=== PATIENT | female | born 1955 | race Caucasian/White ===

== ENCOUNTER 2023-03-20 07:13 | Observation (INO) ==
--- NOTE | 2023-02-02 15:41 | PAT Medication Instructions ---
Medication Instructions Date of Service February 02, 2023 Home Medications alprazolam 0.25 mg tablet 0.25 mg PO DAILY PRN Anxiety biotin 5,000 mcg disintegrating tablet 5,000 mcg PO QAM carvedilol 6.25 mg tablet 6.25 mg PO BID cholecalciferol (vitamin D3) 125 mcg (5,000 unit) tablet (Vitamin D3) 125 mcg PO QAM olmesartan 20 mg-hydrochlorothiazide 12.5 mg tablet 1 tab PO QAM venlafaxine 150 mg capsule,extended release 24 hr 150 mg PO QAM STOP taking 2 weeks before surgery biotin 5,000 mcg disintegrating tablet 5,000 mcg PO QAM DO NOT take the morning of surgery cholecalciferol (vitamin D3) 125 mcg (5,000 unit) tablet (Vitamin D3) 125 mcg PO QAM olmesartan 20 mg-hydrochlorothiazide 12.5 mg tablet 1 tab PO QAM Take morning of surgery With a small sip of water, OTHERWISE NOTHING TO EAT OR DRINK AFTER MIDNIGHT: alprazolam 0.25 mg tablet 0.25 mg PO DAILY PRN Anxiety (if needed) carvedilol 6.25 mg tablet 6.25 mg PO BID venlafaxine 150 mg capsule,extended release 24 hr 150 mg PO QAM Take evening before surgery alprazolam 0.25 mg tablet 0.25 mg PO DAILY PRN Anxiety (if needed) carvedilol 6.25 mg tablet 6.25 mg PO BID Other Notes If you have any questions please call us at [phone] or [phone] or [phone] or [phone]
--- NOTE | 2023-02-06 11:36 | Anesthesiology Consultation ---
Date of Service February 06, 2023 Assessment & Plan (1) Encounter for pre-operative examination: Chart Review Chart Review: Acceptable Risk for Surgery (pending PCP clearance 02/14/23 and response from [facility] neuro re: foot drop ) and Patient seen in Pre Admission Testing - Awaiting PCP clearance 02/14/23 (Aguilar Abbasi PA-C) (please send preop testing to PCP for review) - Please send optimization to neurology ([facility] Dr. Slaughter)- re: foot drop- need r esponse Pt currently scheduled as 23 hours observation. If surgeon decides to change patient to Same Day Joint, patient would be acceptable risk for TSA, pending patient is motivated, has good support and surgeon's office completes [facility] preop requirements. Per PAT appt on 02/06/23, no recent illness/disease exposures, illness related symptoms, or recent illness/disease positive tests. Will leave to surgeon's discretion if preop Covid testing needed Teaching & Discussion Pre-Anesthesia Teaching/Discussion Notes: Instructed NPO after midnight before surgery,except medications with 15 cc of water. Medication instructions provided according to the PAT guidelines. History Surgery Operation Date: 02/22/23 07:00 Proposed Procedures p Left Reverse Total Shoulder Arthroplasty, Biceps Tenodesis - Amor Santos MD Height/Weight Height: 5 ft 2 in Weight: 92.9 kg Allergies Allergy/AdvReac Type Severity Reaction Status Date / Time sulfamethoxazole Allergy Unknown Unknown Verified 02/02/23 10:33 [From Bactrim] trimethoprim [From Bactrim] Allergy Unknown Unknown Verified 02/02/23 10:33 paroxetine [From Paxil] AdvReac Intermediate nightmares Verified 02/02/23 10:33 Medications Home Medications Medication Instructions Recorded Confirmed Last Taken alprazolam 0.25 mg tablet 0.25 mg PO DAILY PRN Anxiety 02/02/23 02/02/23 Unknown biotin 5,000 mcg disintegrating 5,000 mcg PO QAM 02/02/23 02/02/23 Unknown tablet carvedilol 6.25 mg tablet 6.25 mg PO BID 02/02/23 02/02/23 Unknown cholecalciferol (vitamin D3) 125 125 mcg PO QAM 02/02/23 02/02/23 Unknown mcg (5,000 unit) tablet (Vitamin D3) olmesartan 20 1 tab PO QAM 02/02/23 02/02/23 Unknown mg-hydrochlorothiazide 12.5 mg tablet venlafaxine 150 mg 150 mg PO QAM 02/02/23 02/02/23 Unknown capsule,extended release 24 hr Past Medical History Medical History (Updated 02/06/23 @ 14:52 by Meri Cardoso PA-C) Foot drop Right side- since November 2022 - follows with [facility] neuro - 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" Hearing deficit Bilateral aids bilaterally Anxiety Hypertension Exercise / Class Metabolic Activity II 4-5 Yardwork/Stairs/Walk up hill (one flight of stairs - no chest pain or SOB ) Past Family History Family History Other No family history of adverse response to anesthesia Past Surgical History Surgical History History of dilatation and curettage History of bilateral tubal ligation History of lumbar surgery L4-5 History of colonoscopy History of total hysterectomy with bilateral salpingo-oophorectomy (BSO) History of tooth extraction History of ear surgery Past Anesthesia History No Hx of Anesthesia Complications and No Family Hx of Anesthesia Complications History of PONV No Hx of PONV and No Hx of Motion Sickness Social History Smoking Status: Never smoker Do You Dip or Chew Tobacco: No Hx Alcohol Use: Yes (drinks 2 glass of vodka a day) Alcohol type: hard liquor alcohol intake frequency: 0-2 drinks per day Hx Substance Use: No substance use type: does not use Review of Systems Patient denies chest pain, shortness of breath, dyspnea on exertion, reflux, cough, wheezing, palpitations. No hx of seizures, stroke, NC, apnea/snoring. No hx of blood clots or blood transfusions Physical Exam Vital Signs VITALS BP 132/83 P 56 TEMP 97.8 SP02 96% RESP 16 Constitutional no acute distress ENMT Mouth: no TMJ clicking Thyromental Distance: < 3.5 Finger Breadths (3.0) Mallampati Class: II Cap to side teeth Neck neck extension not limited Respiratory normal respiratory effort; no respiratory distress Auscultation: lungs clear to auscultation bilaterally; no wheezes Cardiovascular Rate/Rhythm: regular rate and regular rhythm Heart Sounds: no murmur Vessels: no carotid bruit Musculoskeletal Spine: no pain with cervical ROM Extremities: extremities normal to inspection Psychiatric Orientation: alert Lab Results Anesthesia Preop Results Results Anesthesia Widget: PT 10.7 Seconds (9.0-12.0) 02/06/23 PTT 27.6 Seconds (21.0-31.0) 02/06/23 INR 1.0 (0.9-1.1) 02/06/23 Urine Color Yellow 02/06/23 Urine Appearance Clear (Clear) 02/06/23 Urine pH 6.5 (4.5-7.5) 02/06/23 Urine Specific [place] 1.016 (1.000-1.030) 02/06/23 Urine Protein Negative (Negative) 02/06/23 Urine Glucose (UA) Negative (Negative) 02/06/23 Urine Ketones Negative (Negative) 02/06/23 Urine Blood Negative (Negative) 02/06/23 Urine Nitrite Negative (Negative) 02/06/23 Urine Bilirubin Negative (Negative) 02/06/23 Urine Urobilinogen Negative (Negative) 02/06/23 Urine Leukocyte Esterase Negative (Negative) 02/06/23 Blood Type A Positive 02/06/23 Antibody Screen NEGATIVE 02/06/23 Testing Laboratory Results 01/12/23= WBC: 6.40 H/H: 15.0/44.8 PLATELETS: 268 SODIUM: 140 POTASSIUM: 4.1 CHLORIDE: 101 CO2: 25 BUN: 13 CREATININE: 0.7 GLUCOSE: 101 Electrocardiogram Date: 02/06/23 Findings: + SB @ (54bpm ) Low voltage QRS Poor R wave progression, consider NC vs lead placement vs LVH (EKG from [facility] from November 05, 2020 with similar findings- similar in appearance by personal visual inspection; "cannot rule out anterior infarct" on stress test EKG 2019 (scanned into chart)- with subsequent negative stress test ) Chest X-Ray Date: 02/06/23 Findings: + NAD FINDINGS: Cardiomediastinal and hilar silhouettes are within normal limits. Atherosclerosis of the aorta. No pneumothorax, pleural effusion or overt pulmonary edema. There is an ovoid radiodense 1.6 cm structure which projects over the lateral left upper chest which is favored to be benign. Degenerative changes of the shoulders and spine. Stress Test Date: 08/29/19 Type: exercise NSR with low voltage QRS No significant ST changes and rare PVC noted Negative exercise stress test for ischemia at 7.0 METS and 101% of MPHR. Hypertensive BP response No significant ventricular ectopy. Low risk study
--- NOTE | 2023-03-11 08:55 | History & Physical Report ---
Date of Service March 11, 2023 Assessment & Plan (1) Primary osteoarthritis, left shoulder: Plan: Treatment options discussed with the patient. They wish to proceed with surgical management. Risks, benefits and alternatives to surgery including but not limited to infection, DVT, pain, stiffness, need for revision surgery, damage to blood vessels, damage to nerves, PE, , were discussed with the patient and they wish to proceed. Plan for left reverse total shoulder arthroplasty scheduled for [facility] on March [address] Santos. All questions answered. Patient will follow-up postoperatively. History of Present Illness Chief Complaint: Left shoulder pain Primary Care Provider: Aguilar Abbasi 67-year-old female with past medical history significant for anxiety, hypertension who presents with ongoing left shoulder pain. Pain is interfering with her daily activities. She has failed conservative measures including steroid injections. She would like to proceed with surgical management. Patient denies headaches, sweats, fevers, chills, double vision, blurred vision, cough, sore throat, dysphagia, chest pain, sob, wheezing, n/v/d/c, numbness, tingling, fatigue, urinary symptoms, mood disorders. ROS positive for left shoulder pain and stiffness. Allergies Allergy/AdvReac Type Severity Reaction Status Date / Time sulfamethoxazole Allergy Unknown Unknown Verified 02/02/23 10:33 [From Bactrim] trimethoprim [From Bactrim] Allergy Unknown Unknown Verified 02/02/23 10:33 paroxetine [From Paxil] AdvReac Intermediate nightmares Verified 02/02/23 10:33 Home Medications Medication Instructions Recorded Confirmed Type alprazolam 0.25 mg tablet 0.25 mg PO DAILY PRN Anxiety 02/02/23 02/02/23 History biotin 5,000 mcg disintegrating 5,000 mcg PO QAM 02/02/23 02/02/23 History tablet carvedilol 6.25 mg tablet 6.25 mg PO BID 02/02/23 02/02/23 History cholecalciferol (vitamin D3) 125 125 mcg PO QAM 02/02/23 02/02/23 History mcg (5,000 unit) tablet (Vitamin D3) olmesartan 20 1 tab PO QAM 02/02/23 02/02/23 History mg-hydrochlorothiazide 12.5 mg tablet venlafaxine 150 mg 150 mg PO QAM 02/02/23 02/02/23 History capsule,extended release 24 hr Past Med/Surg History Medical History (Updated 03/11/23 @ 08:54 by Nir Tavarez PA-C) Foot drop Right side- since November 2022 - follows with [facility] neuro - 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" Hearing deficit Bilateral aids bilaterally Anxiety Hypertension Surgical History History of dilatation and curettage History of bilateral tubal ligation History of lumbar surgery L4-5 History of colonoscopy History of total hysterectomy with bilateral salpingo-oophorectomy (BSO) History of tooth extraction History of ear surgery Family History Other No family history of adverse response to anesthesia Social History Smoking Status: Never smoker Second Hand Exposure: No; Do You Dip or Chew Tobacco: No; Tobacco Cessation Education Requested by Patient: No Hx Alcohol Use: Yes (drinks 2 glass of vodka a day) Alcohol type: hard liquor Hx Substance Use: No Preferred Language: Togolese Communication Ability: Effective Resource Technician Required: No Beliefs That Will Affect Care: None Current Living Situation: Spouse Other Information That Helps Us Care for You: No Feels Safe at Home: Yes Safety Concerns: Feels Safe At This Time Assistive Devices: Glasses and Hearing Aid - Bilateral Review of Systems All systems reviewed & are unremarkable except as noted in HPI & below Physical Exam Constitutional: well developed and well nourished; no acute distress Eyes: PERRL, conjunctivae normal, anicteric sclerae ENMT: external ear and nose normal, oropharynx normal Neck: trachea midline, no thyromegaly Respiratory: normal respiratory effort, lungs clear to auscultation Cardiovascular: RRR, no murmur, no edema Musculoskeletal: Left shoulder: Crepitus with range of motion. Tenderness anterior glenoid. Positive impingement signs. Painful range of motion. Forward flexion and abduction to 170 degrees, 80 degrees of external rotation. Normal strength. Skin: no rashes, warm and dry Neurologic: patellar DTR's 2+ bilat, sensation intact Psychiatric: A+Ox3, euthymic affect Results & Data Diagnostic Findings Left shoulder radiographs demonstrate significant osteoarthritis left glenohumeral joint. [id number] glenohumeral joint with large inferior spur. There is a large osteochondral loose body anterior aspect of the shoulder. MRI demonstrates advanced osteoarthritis glenohumeral joint with complete loss of joint space. Large joint effusion with osteochondral loose body in the subcoracoid space. There is mild to moderate rotator cuff tendinopathy with interstitial tearing, possible articular sided tearing. There is a large subchondral rotator cuff cyst.
[~2023-03-20 07:13] MED LIST: ACETAMINOPHEN 500 MG TAB PO SCH; BUPIVACAINE 0.5 % 5 MG/1 ML PF 10ML VIAL ONE; CeleBREX 200 MG CAP PO SCH; DEXAMETHASONE SOD INJ 4 MG/ML VIAL ONE; FAMOTIDINE 20 MG TAB PO SCH; GABAPENTIN 300 MG CAP PO SCH; LIDOCAINE 2% 2 ML VIAL/AMP(20MG/ML) INFIL ONE; LR 15ML/HR IV SCH; LR 60ML/HR IV SCH; METOCLOPRAMIDE HCL 10 MG TABLET PO SCH; MIDAZOLAM HCL 1 MG/ML 2ML VIAL ONE; ONDANSETRON INJ 2 MG/ML 2 ML VIAL ONE; PROPOFOL IV EMULSION 10 MG/ML 20 ML VIAL IV ONE; ROCURONIUM BROMIDE 10 MG/ML 5 ML VIAL IV ONE; SUGAMMADEX SODIUM 200 MG/2 ML VIAL IV ONE; TRANEXAMIC ACID 1,000 MG **IV Intra-op IV SCH; TRANEXAMIC ACID 1,000 MG **IV Pre-op IV SCH; ceFAZolin 2000MG 2,000 MG/15 ML SYR IV SCH; dexAMETHasone 4 MG TAB PO SCH; fentaNYL citrate PF 100 MCG/2 ML VIAL ONE
--- OUTSIDE RECORDS SUMMARY | 2023-03-20 07:18 | External Medical Summary | Summary of Care ---
Author Name Unknown Organization [facility] Address [address] [facility] [address] Phone [phone] Care Team Providers Care Search Engine Optimization Consultant Name Role Phone Elroy Aguilar Silva PA-C Primary Care Provider [phone] Encounter Details Date Type Department Care Team (Late st Contact Info) Description 02/06/2023 Result Scan Unspecified Department <No scans attached> Allergies Active Allergy Reactions Criticality Noted Date Comments Sulfamethoxazole-Trimethoprim 2022 Paroxetine Hcl 04/27/2015 Bad dreams documented as of this encounter (statuses as of 03/17/2023) Medications Medication Sig Dispensed Refills Start Date End Date Status venlafaxine XR (EFFEXOR XR) 150 MG CP24 daily. 1 02/26/2015 Active ALPRAZolam (XANAX) 0.5 MG Tablet Take 0.5 Tablets by mouth at bedtime as needed for Sleep. 0 Active Carvedilol 6.25 MG Oral Tablet (Coreg) Take 1 Tablet by mouth 2 times a day with morning and evening meals. 0 Active Vitamin D3 1.25 MG (66320 UT) Oral Tablet Take by mouth. 0 Active Olmesartan Medoxomil-HCTZ 20-12.5 MG Oral Tablet Take 1 Tablet by mouth in the morning. 0 Active Vitamin B-12 5000 MCG Oral Tablet Disintegrating Take by mouth. 0 Active documented as of this encounter (statuses as of 03/17/2023) Active Problems Problem Noted Date Diagnosed Date Foot drop, right 01/12/2023 Mononeuropathy 01/12/2023 Obesity (BMI 30-39.9) 01/12/2023 documented as of this encounter (statuses as of 03/17/2023) Immunizations Name Administration Dates Next Due COVID-19 mRNA, LNP-s, No Pre serve, 2-Dose Series (Moderna) 06/13/2020,05/16/2020 COVID-19, mRNA, LNP-s, PF, B ooster, 100mcg/0.5mg (Moderna) 04/10/2021 H1N1 2009 Influenza, IM 03/18/2009 Pneumococcal Conjugate Vacc, 13 Valent (Prevnar) 01/08/2021 Pneumococcal Conjugate Vaccine, 20-valent (Prevn ar20) 01/24/2022 Season Influenza, Quad, PF, Adjuvanted, 65+ Yrs, IM (FLUAD) 01/24/2022,12/06/2019 Seasonal Influenza, Quadrivalent Hd (Fluzone Hd) 01/05/2021 Seasonal Influenza, Quadrivalent Hd, 65+ Yrs 07/2019 TD - Tetanus/Diptheria (ADULT) 11/17/2011 Zoster Vaccine Recombinant (Shingrix) 04/07/2020 ,12/06/2019 documented as of this encounter Social History Tobacco Use Types Packs/Day Years Used Date Smoking Tobacco: Never Smokeless Tobacco: Never Alcohol Use Standard Drinks/Week Comments Yes 0 (1 standard drink = 0.6 oz pur e alcohol) occasionally Sex and Gender Information Value Date Recorded Sex Assigned at Not on file Gender Identity Not on file Sexual Orientation Not on file Job Start Date Occupation Industry Not on file Not on file Not on file documented as of this encounter Plan of Treatment Upcoming Encounters Date Type Department Care Team (Late st Contact Info) Description 03/23/2023 12:45 PM EST NeuroDiagnostic Study Neurophysiology, [address] [place] [address] Chu Reed DO [address] [place] [address] 03/29/2023 9:00 AM EST Appointment Radiology, [facility] [address] [facility] [place] [phone] 04/27/2023 10:40 AM EST [facility] Keli Gallo [address] [facility] [place] [phone] Antonella Slaughter MD [address] [place] [address] Scheduled Procedures Name Priority Associated Diagnoses Date/Ti me COLONOSCOPY FLEXIBLE PROXIMA L DIAGNOSTIC Recall Screening for colon cancer Health Maintenance Due Date Last Done Comments Hepatitis C Screening 07/23/1971 Cologuard 1998 Fecal Occult Blood Test 1998 Sigmoidoscopy 1998 DTaP,Tdap,and Td Vaccines (1 - Tdap) 11/18/2011 11/17/2011 Depression Screening 11/29/2017 11/29/2016 COVID-19 Vaccine ( season) 2022 04/10/2021, 06/13/2020, 05/16/2020 Mammogram 03/09/2024 03/09/2023, 07/2022, 02/15/2022, Additional history exists DXA Scan 12/14/2025 12/14/2018 Diabetes Screening 01/12/2026 01/12/2023, 1 , 08/05/2022, Additional history exists Lipid Panel 08/06/2027 08/05/2022, 01/01, 07/09/2021, Additional history exists Colonoscopy 08/12/2030 08/12/2020, 08/12/2020 Colorectal Cancer Screening 08/12/2030 Zoster Vaccines Completed 04/07/2020, 12/06/2019 Pneumococcal Vaccine: 65+ Years Completed 01/24/2022, 01/08/2021 Influenza Vaccine (FLU shot) Completed 10/2022, 01/24/2022, 01/05/2021, Additional history exists GARDASIL-HPV IMMUNIZATION SERIES Aged Out No longer eligible based on patient's age to complete this topic Hepatitis B Aged Out No longer eligi ble based on patient's age to complete this topic MENINGOCOCCAL (MENACTRA/MENVEO) Aged Out No longer eligible based on patient's age to complete this topic documented as of this encounter Medical Devices Not on filedocumented as of this encounter Procedures Procedure Name Priority Date/Time Associated Diagnosis Comments EKG SCANNED RESULT 02/06/2023 documented in this encounter Results * EKG SCANNED RESULT (02/06/2023) 02/06/2023 No Physician Data Unknown EKG documented in this encounter Care Teams Search Engine Optimization Consultant Relationship Specialty Start Date End Date Aguilar Abbasi [facility] [phone] [facility] [id number] PCP - General Physician Mold Blower 01/08/21 documented as of this encounter
--- OUTSIDE RECORDS SUMMARY | 2023-03-20 07:18 | External Medical Summary | Summary of Care ---
Author Name Unknown Organization [facility] Address [address] [place] [address] Phone [phone] Care Team Providers Care Derrick Barge Operator Name Role Phone Aguilar Abbasi PA-C Primary Care Provider [phone] Reason for Visit * Reason Comments NEW PATIENT Pre-op Clearance * Evaluate & Treat - Unlimited Visits (Within 3 days (urgent)) - Authorized Specialty Diagnoses / Procedures Referred By Inga t Referred To Contact Cardiovascular Medicine / Cardiology Diagnoses Encounter for preprocedural cardiovascular examination Abnormal electrocardiogram (ECG) (EKG) Aguilar Abbasi PA-C [address] [place] [address] Referral ID Status Reason Start Date Expiration Date Visits Requested Visits Authorized [id number] Authorized Specialty Services Required [phone] Encounter Details Date Type Department Care Team (Latest Contact Info) Description 03/15/2023 11:00 AM EST Office Visit Cardiology [place] [facility] [address] [facility] [place] [address] Sofia Penaloza CRNP [address] [place] [phone] Nonspecific abnormal electrocardiogram (ECG) (EKG)*; Preoperative cardiovascular examination; HTN, goal below 130/80; Hyperlipemia, mixed Allergies Active Allergy Reactions Criticality Noted Date Comments Sulfamethoxazole-Trimethoprim 2022 Paroxetine Hcl 04/27/2015 Bad dreams documented as of this encounter (statuses as of 03/15/2023) Medications Medication Sig Dispensed Refills Start Date [...] meals. 0 Active Vitamin D3 1.25 MG (70735 UT) Oral Tablet Take by mouth. 0 Active Olmesartan Medoxomil-HCTZ 20-12.5 MG Oral Tablet Take 1 Tablet by mouth in the morning. 0 Active Vitamin B-12 5000 MCG Oral Tablet Disintegrating Take by mouth. 0 Active Lisinopril-Hydrochlo rothiazide 20-12.5 MG per tablet Take 2 Tabs by mouth daily. 1 04/01/2015 03/15/2023 Discontinue d(Patient preference/ discontinua tion) Estradiol 0.1 MG/24HR Transdermal Patch Weekly ([place]) Place 1 Patch topically on the skin once a week. 0 03/15/2023 Discontinue d(Patient preference/ discontinua tion) documented as of this encounter (statuses as of 03/15/2023) Active Problems Problem Noted Date Diagnosed Date Foot drop, right 01/12/2023 Mononeuropathy 01/12/2023 Obesity (BMI 30-39.9) 01/12/2023 documented as of this encounter (statuses as of 03/15/2023) Immunizations Name Administration Dates Next Due COVID-19 mRNA, LNP-s, No Pre serve, 2-Dose Series (Moderna) 06/13/2020,05/16/2020 COVID-19, mRNA, LNP-s, PF, B ooster, 100mcg/0.5mg (Moderna) 04/10/2021 H1N1 2009 Influenza, IM 03/18/2009 Pneumococcal Conjugate Vacc, 13 Valent (Prevnar) 01/08/2021 Pneumococcal Conjugate Vacci ne, 20-valent ([id number]) 01/24/2022 Season Influenza, Quad, PF, Adjuvanted, 65+ Yrs, IM (FLUAD) 03/09/2023,01/24/2022,12/06/2019 Seasonal Influenza, Quadriva lent Hd (Fluzone Hd) 01/05/2021 Seasonal Influenza, Quadriva lent Hd, 65+ Yrs 12/06/2019 TD - Tetanus/Diptheria (ADULT) 11/17/2011 Zoster Vaccine [...] on file documented as of this encounter Last Filed Vital Signs Vital Sign Reading Time Taken Comments Blood Pressure 126/70 03/15/2023 10:54 AM EST Pulse 66 03/15/2023 10:54 AM EST Temperature - - Respiratory Rate - - Oxygen Saturation - - Inhaled Oxygen Concentration - - Weight 92.2 kg (203 lb 3.2 oz) 03/15/2023 10:54 AM EST Height 157.5 cm (5' 2") 03/15/2023 10:54 AM EST Body Mass Index 37.17 03/15/2023 10:54 AM EST documented in this encounter Progress Notes * Sofia Penaloza CRNP - 03/15/2023 10:58 AM EST Subjective Kallie Anthony is a 67 year old female. Chief Complaint Patient presents with NEW PATIENT Pre-op Clearance Referring Provider: Roseanne Abbasi, PAc CC: Abnormal ECG HPI: 67-year-old female presents today referred by her primary care provider for abnormal ECG for preop cardiac clearance. She is planning to have a reverse total shoulder replacement by Dr. Santos next week. She has a known past medical history of hypertension, anxiety and right foot drop. Denies chest pain, SOB, palpitations, dizziness, syncope, edema, orthopnea and PND. No change in activity tolerance. She is able to climb a flight of stairs and do normal daily activities without shortness of breath or any other symptoms to report. Cardiac Family Hx Father of [place] at 46 ( he was a heavy smoker and ETOH use) PMH: Patient Active Problem List Diagnosis Code Foot drop, right M21.371 Mononeuropathy G58.9 Obesity (BMI 30-39.9) E66.9 Current Outpatient Medications Medication Sig Dispense Refill venlafaxine XR (EFFEXOR XR) 150 MG CP24 daily. 1 Carvedilol 6.25 MG Oral Tablet (Coreg) Take 1 Tablet by mouth 2 times a day with morning and evening meals. Vitamin D3 1.25 MG (77472 UT) Oral Tablet Take by mouth. Olmesartan Medoxomil-HCTZ 20-12.5 MG Oral Tablet Take 1 Tablet by mouth in the morning. ALPRAZolam (XANAX) 0.5 MG Tablet Take 0.5 Tablets by mouth at bedtime as needed for Sleep. Vitamin B-12 5000 MCG Oral Tablet Disintegrating Take by mouth. No current facility-administered medications for this visit. Past Medical History: Diagnosis Date Anxiety Hypertension Past Surgical History: Procedure Laterality Date COLONOSCOPY, DIAGNOSTIC (RECTUM) N/A 08/12/2020 scattered recto-sigmoid diverticulosis/internal hemorrhoids/recall 10 years/COLONOSCOPY FLEXIBLE PROXIMAL DIAGNOSTIC performed by Aurora Jorge [facility] at [facility] DILATION AND CURETTAGE (D&C) 04/03/2009 INFORMATION 04/03/1990 back surgery LIGATE/CUT OVIDUCT(S) 04/03/1991 AL SPINE/LUMBAR DISK SURGERY 1990 TOTAL ABD HYSTERECTOMY W/WO REMOVAL OF TUBE(S) 04/03/2010 BSO Review of patient's allergies indicates: Allergen Reactions Bactrim [Sulfamethoxazole-Trimethoprim] Paxil [Paroxetine Hcl] Bad dreams Family History Problem Relation Age of Onset Hypertension Mother Diabetes Mother Other (multiple back surgeries) Mother Other ([place]-) Father Diabetes Sister Hypertension Brother Other (high cholesterol) Brother Other ("black lung") Grandfather (Maternal) Breast Cancer Cousin (Maternal) Family Status Relation Status Mo Fa Sis (Not Specified) Bro (Not Specified) Bro (Not Specified) MGFA (Not Specified) MCOUS (Not Specified) Social History Socioeconomic History Marital status: Spouse name: Not on file Number of children: Not on file Years of education: Not on file Highest education level: Not on file Occupational History Not on file Tobacco Use Smoking status: Never Smokeless tobacco: Never Substance and Sexual Activity Alcohol use: Yes Comment: occasionally Drug use: No Sexual activity: Yes Partners: Male Other Topics Concern Not on file Social History Narrative Not on file Social Determinants of Health Financial Resource Strain: Not on file Food Insecurity: Not on file Transportation Needs: Not on file Physical Activity: Not on file Stress: Not on file Social Connections: Not on file Intimate Partner Violence: Not on file Housing Stability: Not on file Review of Systems Constitutional: Negative for activity change, fatigue and unexpected weight change. Eyes: Negative for visual disturbance. Respiratory: Negative for shortness of breath and wheezing. Cardiovascular: Negative for chest pain, palpitations and leg swelling. Gastrointestinal: Negative for blood in stool, constipation, diarrhea, nausea and vomiting. Genitourinary: Negative for hematuria. Musculoskeletal: Negative for arthralgias and gait problem. Skin: Negative for wound. Neurological: Negative for dizziness and syncope. Objective BP 126/70 | Pulse 66 | Ht 1.575 m (5' 2") | Wt 92.2 kg (203 lb 3.2 oz) | BMI 37.17 kg/m | BSA 2.01 m Physical Exam Vitals and nursing note reviewed. Constitutional: General: She is awake. She is not in acute distress. Appearance: Normal appearance. She is well-developed. She is not ill-appearing. HENT: Head: Normocephalic and atraumatic. Eyes: General: No scleral icterus. Extraocular Movements: Extraocular movements intact. Conjunctiva/sclera: Conjunctivae normal. Pupils: Pupils are equal, round, and reactive to light. Neck: Thyroid: No thyromegaly. Vascular: No carotid bruit or JVD. Cardiovascular: Rate and Rhythm: Normal rate and regular rhythm. Pulses: Normal pulses. Carotid pulses are 2+ on the right side and 2+ on the left side. Radial pulses are 2+ on the right side and 2+ on the left side. Posterior tibial pulses are 2+ on the right side and 2+ on the left side. Heart sounds: Normal heart sounds, S1 normal and S2 normal. No murmur heard. Pulmonary: Effort: Pulmonary effort is normal. No respiratory distress. Breath sounds: Normal breath sounds. No wheezing, rhonchi or rales. Abdominal: General: Bowel sounds are normal. There is no distension. Palpations: Abdomen is soft. There is no mass. Tenderness: There is no abdominal tenderness. Musculoskeletal: General: No swelling. Cervical back: Neck supple. Right lower leg: No edema. Left lower leg: No edema. Skin: General: Skin is warm and dry. Capillary Refill: Capillary refill takes less than 2 seconds. Findings: No rash or wound. Neurological: General: No focal deficit present. Mental Status: She is alert and oriented to person, place, and time. Psychiatric: Attention and Perception: Attention and perception normal. Behavior: Behavior is cooperative. Judgment: Judgment normal. Results Labs & Imaging Reviewed Below: ECG 03/09/23 at [facility] NSR Poor R wave Progression 65 bpm QTc 438 02/06/23 at [facility] SB Poor R-wave progression 54 bpm QTc 771 ms 12/08/20 NSR Low voltage QRS 73 bpm QTc 451 ms 11/05/20 NSR Poor R wave progression 79 bpm QTc 438 ms Treadmill Stress Test 08/29/19 Normal sinus rhythm with low voltage QRS. No significant ST changes and rare PVC noted. Negative exercise stress test for ischemia at 7.0 Mets and 101% of maximum predicted heart rate. hypertensive blood pressure response no significant ventricular ectopy low risk study Labs Latest Reference Range & Units 01/17/22 09:53 08/05/22 10:14 01/12/23 15:54 CO2-OUTSIDE LAB 24 - 31 MEQ/L 28 30 TRIGLYCERIDES-OUTSIDE LAB 0 - 150 MG/DL 84 64 CHOLESTEROL-Outside Lab 0 - 200 MG/DL 224 (H) 242 (H) LDL (DIRECT MEASURE)-OUTSIDE LAB 0 - 130 MG/DL 125 147 (H) Sodium 135 - 146 mmol/L 140 SODIUM-OUTSIDE LAB 135 - 145 MEQ/L 135 133 (L) Potassium 3.5 - 5.1 mmol/L 4.1 POTASSIUM-OUTSIDE LAB 3.5 - 5.0 MEQ/L 4.1 4.6 Chloride 98 - 107 mmol/L 101 CHLORIDE-OUTSIDE LAB 95 - 107 MEQ/L 98 96 CO2 22 - 32 mmol/L 25 BUN 6 - 20 mg/dL 13 BUN-OUTSIDE LAB 6 - 25 MG/DL 11 15 Creatinine 0.5 - 1.0 mg/dL 0.7 CREATININE-OUTSIDE LAB 0.5 - 1.2 MG/DL 0.6 0.6 Estimated Glomerular Filtration Rate >=60 mL/min 89 EGFR-OUTSIDE LAB >60 106 105 Anion Gap 7 - 15 mmol/L 14 Glucose 70 - 120 mg/dL 101 GLUCOSE-OUTSIDE LAB 70 - 110 MG/DL 114 (H) 87 Calcium 8.4 - 10.2 mg/dL 10.0 CALCIUM-OUTSIDE LAB 8.5 - 10.6 MG/DL 10.2 10.0 Protein 6.0 - 8.3 g/dL 6.9 Estimated Average Glucose <126 mg/dL 111 25-HYDROXY VITAMIN D - OUTSIDE LAB 30 - 100 ng/mL 76 66 25-HYDROXY VITAMIN D Rpt Rpt Hemoglobin A1C 4.0 - 5.6 % 5.5 TSH 0.27 - 4.20 uIU/mL 3.48 CBC Rpt CBC WITH WBC DIFFERENTIAL Rpt ! Rpt ! Rpt WBC 4.00 - 10.80 K/uL 6.40 WBC-OUTSIDE LAB 3.1 - 9.2 10^3/M3 4.0 7.0 RBC-OUTSIDE LAB 3.70 - 5.50 10^6/M3 4.09 4.25 HGB 12.0 - 15.3 g/dL 15.0 HCT 36.0 - 45.2 % 44.8 MCV 81.5 - 97.5 fL 103.7 PLT 140 - 400 K/uL 268 PLT-OUTSIDE LAB 140 - 350 10^3/M3 233 286 Absolute Neutrophils 1.80 - 7.70 K/uL 3.20 Absolute Lymphocytes 1.00 - 4.80 K/ul 2.32 Absolute Monocytes 0.00 - 1.10 K/uL 0.66 Absolute Eosinophils 0.00 - 0.70 K/uL 0.18 Absolute Basophils 0.00 - 0.20 K/uL 0.02 BASOPHILS ABSOLUTE-OUTSIDE LAB 0.0 - 0.2 10^3/m3 0.0 0.0 AIDE Screen Negative Positive ! ARMOND Antibodies Screen Value <0.7 Ratio 1.5 ARMOND Antibodies Screen Interpretation Negative Positive ! ANTINUCLEAR ANTIBODY (AIDE) EIA SCREEN WITH REFLEX AB QUANT Rpt ! ANTINUCLEAR ANTIBODY (AIDE) SCREEN, VINCENT Rpt ! dsDNA Antibody Value <20 IU/mL 0.9 [employer] Antibody Value <5 U/mL 0.9 [employer] Antibody Interpretation Negative Negative Sm Antibody Value <7 U/mL <0.7 Sm Antibody Interpretation Negative Negative Scl 70 Antibody Value <7 U/mL <0.6 Scl 70 Antibody Interpretation Negative Negative SSA/Ro Antibody Value <7 U/mL <0.4 SSA/Ro Antibody Interpretation Negative Negative SSB/La Antibody Value <7 U/mL <0.4 SSB/La Antibody Interpretation Negative Negative Centromere Antibody Value <7 U/mL 15.0 Rosemarie-1 Antibody Value <7 U/mL <0.3 Rosemarie-1 Antibody Interpretation Negative Negative ESR <30 mm/hour 18 Lyme Disease Antibody Screen Negative Negative Albumin 3.8 - 5.0 g/dL 4.5 Albumin - Outside Lab 3.0 - 5.2 G/DL 4.6 4.3 AST 10 - 35 U/L 21 AST-OUTSIDE LAB 3 - 42 IU/L 25 20 ALT 10 - 35 U/L 26 ALT-OUTSIDE LAB 10 - 40 IU/L 25 25 Alkaline Phosphatase 35 - 130 U/L 78 ALKALINE PHOSPHATASE-OUTSIDE LAB 43 - 122 IU/L 53 47 TOTAL BILIRUBIN - OUTSIDE LAB 0.1 - 1.3 MG/DL 0.8 0.6 Bilirubin, Total <=1.2 mg/dL 0.5 Revised cardiac index for preoperative risk: Elevated risk surgery: no History of ischemic heart disease: no History of CHF: no History of cerebrovascular disease: no Preoperative treatment with insulin: No Preoperative creatinine greater than 2 mg/dL: No Total: 0 Class I Risk 3.9% risk of cardiac event Impression Pre Op Cardiac Clearance Abnormal ECG with Poor R wave Progression HTN HLD Plan: -HR and BP well controlled -she does have 1 family member who had a significant cardiac event however her father was a heavy smoker and drinker which likely contributed to his cardiac disease -ECGs reviewed over the past several years with poor R-wave progression and low voltage QRS noted -she is asymptomatic from a cardiac standpoint and able to tolerate normal daily activities with nosymptoms -I suspect the poor R-wave progression/low voltage QRS are likely due to her structure and not clinically significant -she is optimize/cleared d from a cardiac standpoint in requires no additional cardiac testing prior to undergoing shoulder surgery as planned -no need for her to follow with cardiology on a regular basis; recommend she be seen in on as-needed basis DISPOSITION: Follow up PRN or if symptoms worsen/fail to improve. All questions were answered to the patients satisfaction. Patient advised to report to ED with any and all emergencies. The patient agrees to the above plan and will call with additional questions or concerns. I spent a total of 60 minutes on the date of service in preparation, delivery, and documentation ofthe care provided to Kallie Anthony excluding any time spent in the performance of separately billed services. RIOS Chamorro Cardiology [place] [address] [address] [place] [id number] This chart was completed in part utilizing [employer] Speech Voice Recognition Software. Grammatical errors, random word insertions, pronoun errors, and incomplete sentences are an occasional consequence of this system due to software limitations, ambient noise, and hardware issues. Any formal questions or concerns about the content, text, or information contained within the body of this dictation should be directly addressed to the provider for clarification. documented in this encounter Nursing Notes * Karla Humphrey LPN - 03/15/2023 10:53 AM EST Patient was identified by name and date of . Name: Kallie Anthony Date of : (1955). Examination Room: 11 Reason for Visit: Chief Complaint Patient presents with NEW PATIENT Pre-op Clearance Interim Hospitalization(s): NO Interim Emergency room visit(s): NO Chest Pain: No SOB: No Problems/Concerns: No Pt sched for L shoulder surg Mon 03/[address] Santos Medications reviewed and are up to date via: Patient's memory Would you like to sign up for [facility]? DECLINES Patient was instructed to not get up on the exam table/exam chair until directed and assisted by their provider; patient is to remain seated in the chair/ wheelchair/ exam table/ exam chair for fall prevention and safety reasons. Patient is aware to have assistance to step down off exam table/exam chair with personnel. Patient voiced full comprehension of instructions. Karla Humphrey LPN 10:53 AM 03/15/2023 documented in this encounter Plan of Treatment Upcoming Encounters Date Type Department Care Team (Late st Contact Info) Description 03/23/2023 12:45 PM EST NeuroDiagnostic Study Neurophysiology, [place] [address] Chu Reed DO [address] [facility] [place] [address] 03/29/2023 9:00 AM EST Appointment Radiology, [facility] [address] [facility] [place] [phone] 04/27/2023 10:40 AM EST [facility] [address] [facility] [place] [address] Antonella Slaughter MD [address] [facility] [place] [address] Scheduled Procedures Name Priority Associated Diagnoses Date/Ti me COLONOSCOPY FLEXIBLE PROXIMA L DIAGNOSTIC Recall Screening for colon cancer Scheduled Referrals Name Type Priority Associated Diagnoses Orde r Schedule CARDIOLOGY REFERRAL OP Referral Within 3 days (urgent) Encounter for preprocedural cardiovascular examination Abnormal electrocardiogram (ECG) (EKG) Ordered: 03/13/2023 Health Maintenance Due Date Last Done Comments [...] Not on filedocumented as of this encounter Visit Diagnoses Diagnosis Nonspecific abnormal electrocardiogram (ECG) (EKG)- Primary Preoperative cardiovascular examination Pre-operative cardiovascular examination HTN, goal below 130/80 Unspecified essential hypertension Hyperlipemia, mixed Mixed hyperlipidemia documented in this encounter Care Teams Derrick Barge Operator Relationship Specialty Start Date End Date Aguilar Abbasi PA-C [address] [facility] [place] [address] PCP - General Physician Displayer Merchandise 01/08/21 documented as of this encounter
--- OUTSIDE RECORDS SUMMARY | 2023-03-20 07:18 | External Medical Summary | Summary of Care ---
Author Name Unknown Organization [facility] Address [address] [place] [address] Phone [phone] Care Team Providers Care Revenue Cycle Administrator Name Role Phone Aguilar Abbasi PA-C Primary Care Provider [phone] Encounter Details Date Type Department Care Team (Latest Contact Info) Description 03/17/2023 12:28 PM EST - 03/17/2023 11:59 PM EST Hospital Encounter Radiology, [facility] [address] [facility] [place] [phone] Arrived Discharge Disposition: Home - Self Care Allergies Active Allergy Reactions Criticality Noted Date Comments Sulfamethoxazole-Trimethoprim 2022 Paroxetine Hcl 04/27/2015 Bad dreams documented as of this encounter (statuses as of 03/18/2023) Medications Medication Sig Dispensed Refills Start Date [...] meals. 0 Active Vitamin D3 1.25 MG (99637 UT) Oral Tablet Take by mouth. 0 Active Olmesartan Medoxomil-HCTZ 20-12.5 MG Oral Tablet Take 1 Tablet by mouth in the morning. 0 Active Vitamin B-12 5000 MCG Oral Tablet Disintegrating Take by mouth. 0 Active documented as of this encounter (statuses as of 03/18/2023) Active Problems Problem Noted Date Diagnosed Date Foot drop, right 01/12/2023 Mononeuropathy 01/12/2023 Obesity (BMI 30-39.9) 01/12/2023 documented as of this encounter (statuses as of 03/18/2023) Immunizations Name Administration Dates Next Due COVID-19 mRNA, LNP-s, No Pre serve, 2-Dose Series (Moderna) 06/13/2020,05/16/2020 COVID-19, mRNA, LNP-s, PF, B ooster, 100mcg/0.5mg (Moderna) 04/10/2021 H1N1 2009 Influenza, IM 03/18/2009 Pneumococcal Conjugate Vacc, 13 Valent (Prevnar) 01/08/2021 Pneumococcal Conjugate Vacci ne, 20-valent ([id number]) 01/24/2022 Season Influenza, Quad, PF, Adjuvanted, 65+ [...] 03/23/2023 12:45 PM EST NeuroDiagnostic Study Neurophysiology, [address] [place] [id number] Chu Reed, [address] [facility] [place] [address] 03/29/2023 9:00 AM EST Appointment Radiology, [address] [place] [phone] 04/27/2023 10:40 AM EST Office Visit Neurology [place] Keli Gutierrez [address] [facility] [place] [address] Antonella Slaughter MD [address] [facility] [place] [address] Scheduled Procedures Name Priority Associated Diagnoses Date/Ti [...] Procedure Name Priority Date/Time Associated Diagnosis Comments XR FOOT 3 OR MORE VIEWS STAT 03/17/2023 12:39 PM EST Pain in right foot documented in this encounter Results * XR FOOT 3 OR MORE VIEWS (03/17/2023 12:39 PM EST) Anatomical Region Laterality Modality Foot, Lower Extremity Digital Ra diography 03/17/2023 12:5 5 PM EST Impressions 03/17/2023 12:52 PM EST IMPRESSION Fifth metatarsal base fracture Narrative 03/17/2023 12:52 PM EST EXAM Right foot-03/17/2023 12:39 pm HISTORY pain in right foot COMPARISON No comparisons TECHNIQUE Three views FINDINGS Mildly displaced intra-articular fracture 5th metatarsal base. No dislocation. 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 Bipartite tibial sesamoid. Mild osteoarthritis 1st MTP and multifocal IP joints. Small plantar calcaneal spur. Procedure Note Liang Ortiz DO - 03/17/2023 EXAM Right foot-03/17/2023 12:39 pm HISTORY pain in right foot COMPARISON No comparisons TECHNIQUE Three views FINDINGS Mildly displaced intra-articular fracture 5th metatarsal base. Nodislocation. Flattening 2nd metatarsal head suggesting chronic Freiberg'sinfraction. Bipartite tibial sesamoid. Mild osteoarthritis 1st MTP andmultifocal IP joints. Small plantar calcaneal spur. IMPRESSION IMPRESSION Fifth metatarsal base fracture Aguilar Abbasi PA-C RADIOLOGY (RAD GENER AL) documented in this encounter Care Teams Revenue Cycle Administrator Relationship Specialty Start Date End Date Aguilar Abbasi PA-C [facility] [facility] [place] [phone] PCP - General Physician Home Appliance Technician 01/08/21 documented as of this encounter
--- OUTSIDE RECORDS SUMMARY | 2023-03-20 07:18 | External Medical Summary | Summary of Care ---
Author Name Unknown Organization [facility] Address [address] [place] [address] Phone [phone] Care Team Providers Care Building Maintenance Custodian Name Role Phone Elroy Aguilar Silva PA-C Primary Care Provider [phone] Encounter Details Date Type Department Care Team (Late st Contact Info) Description 03/09/2023 Result Scan Unspecified Department <No scans attached> [...] meals. 0 Active Vitamin D3 1.25 MG (85192 UT) Oral Tablet Take by mouth. 0 [...] (Prevnar) 01/08/2021 Pneumococcal Conjugate Vacci ne, 20-valent ([id number]) 01/24/2022 Season Influenza, Quad, PF, Adjuvanted, 65+ [...] 03/23/2023 12:45 PM EST NeuroDiagnostic Study Neurophysiology, [address] [place] [address] Chu Reed, [address] [place] [address] 03/29/2023 9:00 AM EST Appointment Radiology, [address] [place] [phone] 04/27/2023 10:40 AM EST [facility] 200 [facility] [place] [address] Antonella Slaughter MD [address] [facility] [place], [place] [address] Scheduled Procedures Name Priority Associated Diagnoses Date/Ti [...] Date/Time Associated Diagnosis Comments EKG SCANNED RESULT 03/09/2023 documented in this encounter Results * EKG SCANNED RESULT (03/09/2023) 03/09/2023 No Physician Data Unknown EKG documented in this encounter Care Teams Building Maintenance Custodian Relationship Specialty Start Date End Date Aguilar Abbasi PA-C [address] [facility] [place] [phone] PCP - General Physician Brake Repairer Bus 01/08/21 documented as of this encounter
--- OUTSIDE RECORDS SUMMARY | 2023-03-20 07:18 | External Medical Summary | Summary of Care ---
Author Name Unknown Organization [facility] Address [address] [place] [address] Phone [phone] Care Team Providers Care Pillowcase Cutter Name Role Phone Aguilar Abbasi PA-C Primary Care Provider [phone] Reason for Visit * Reason Onset Date Comments Other 03/15/2023 Primack / surger y clearance needed Encounter Details Date Type Department Care Team (Late st Contact Info) Description 03/15/2023 Telephone Neurology [facility] [address] [place] [address] Antonella Slaughter MD [address] [place] [address] Other (Primack / surgery clearance needed) Allergies Active Allergy Reactions Criticality Noted Date [...] meals. 0 Active Vitamin D3 1.25 MG (19080 UT) Oral Tablet Take by mouth. 0 [...] (Prevnar) 01/08/2021 Pneumococcal Conjugate Vacci ne, 20-valent ([id number]) 01/24/2022 Season Influenza, Quad, PF, Adjuvanted, 65+ [...] on file documented as of this encounter Miscellaneous Notes * Telephone Encounter - Kim De Luna LPN - 03/17/2023 10:39 AM EST Found a note from Dr. Slaughter. 's office informed. No neuro contraindication to shoulder surgery; she has an appt for emg/ncv on 03/25; this will haveto be rescheuled, since she will likely be unable to be cooperative * Telephone Encounter - Savanna Kirkland OSA - 03/17/2023 9:07 AM EST Meri called in to f/u on previous message due to surgery on Monday And they need an answer please [phone] Meri Ty! * Telephone Encounter - Naty Pitts, MED ASSIST - 03/15/2023 2:[address] Slaughter, please advise. Thank you! * Telephone Encounter - Patria Cooper OSA - 03/15/2023 1:40 PM EST Patient verified identity by spelling of last name and date. Meri from [facility] Anesthesia office calling in that Patient is scheduled for Left Shoulder Replacement surgery done on 03/20/23. They are needing neurology to clear her for surgery due to patients foot drop. Please call Meri to advise documented in this encounter Plan of Treatment Upcoming Encounters Date Type Department Care Team (Late st Contact Info) Description 03/23/2023 12:45 PM EST NeuroDiagnostic Study Neurophysiology, [address] [place] [address] Chu Reed, [address] [place] [address] 03/29/2023 9:00 AM EST Appointment Radiology, [address] [place] [phone] 04/27/2023 10:40 AM EST Office Visit Neurology [facility] [place] [address] [place] [address] Antonella Slaughter MD [address] [facility] [place] [address] Scheduled Procedures Name Priority Associated Diagnoses Date/Ti [...] Not on filedocumented as of this encounter Care Teams Pillowcase Cutter Relationship Specialty Start Date End Date Aguilar Abbasi PA-C [address] [facility] [place] [address] PCP - General Physician Non Profit Financial Controller 01/08/21 documented as of this encounter
--- OUTSIDE RECORDS SUMMARY | 2023-03-20 07:18 | External Medical Summary | Summary of Care ---
Author Name Unknown Organization [facility] Address [address] [place] [address] Phone [phone] Care Team Providers Care Coordinating Producer Name Role Phone Aguilar Abbasi PA-C Primary Care Provider [phone] Reason for Visit * Reason Onset Date Comments Films 03/17/2023 Encounter Details Date Type Department Care Team (Late st Contact Info) Description 03/17/2023 Telephone Radiology [facility] [address] [place] [address] Aguilar Abbasi PA-C [address] [place] [address] Films Allergies Active Allergy Reactions Criticality Noted Date [...] meals. 0 Active Vitamin D3 1.25 MG (08380 UT) Oral Tablet Take by mouth. 0 [...] (Prevnar) 01/08/2021 Pneumococcal Conjugate Vacci ne, 20-valent ([id number]) 01/24/2022 Season Influenza, Quad, PF, Adjuvanted, 65+ [...] encounter Miscellaneous Notes * Telephone Encounter - Mirella House OSA - 03/17/2023 2:[address] [facility] requesting 03-17-23 XR images be pushed to their system. [place] Authorization to Release on file. Images pushed to [facility] external connection through PAC[employer] Report(s) faxed to [phone]. Successful fax confirmation received. documented in this encounter Plan of Treatment Upcoming Encounters Date Type Department Care Team (Late st Contact Info) Description 03/23/2023 12:45 PM EST NeuroDiagnostic Study Neurophysiology, [address] [place] [address] Chu Reed, [address] [facility] [place] [address] 03/29/2023 9:00 AM EST Appointment Radiology, [facility] [address] [facility] [place] [phone] 04/27/2023 10:40 AM EST Office Visit Neurology [facility] [address] [facility] [place] [address] Antonella Slaughter MD [address] [place] [address] Scheduled Procedures Name Priority Associated Diagnoses Date/Ti me COLONOSCOPY FLEXIBLE PROXIMA L DIAGNOSTIC Recall Screening for colon cancer Health Maintenance Due Date Last Done Comments Hepatitis C Screening 07/[birth year]1971 Cologuard 1998 Fecal Occult Blood Test 1998 Sigmoidoscopy 1998 DTaP,Tdap,and Td Vaccines (1 - Tdap) 11/18/2011 11/17/2011 Depression Screening 11/29/2017 11/29/2016 COVID-19 Vaccine ( season) 2022 04/10/2021, 06/13/2020, 05/16/2020 Mammogram 03/09/2024 03/09/2023, 12/07/2022, 02/15/2022, Additional history exists DXA Scan 12/14/2025 [...] filedocumented as of this encounter Care Teams Coordinating Producer Relationship Specialty Start Date End Date Aguilar Abbasi PA-C [address] [facility] [place] [address] PCP - General Physician Fancy Needleworker 01/08/21 documented as of this encounter
--- OUTSIDE RECORDS SUMMARY | 2023-03-20 07:18 | External Medical Summary | Summary of Care ---
Author Name Unknown Organization [facility] Address [address] [place] [address] Phone [phone] Care Team Providers Care Registered Massage Therapist Name Role Phone Aguilar Abbasi PA-C Primary Care Provider [phone] Reason for Visit * Reason Onset Date Comments Other 03/15/2023 Primack / surger y clearance needed Encounter Details Date Type Department Care Team (Late st Contact Info) Description 03/15/2023 Telephone Neurology [facility] [address] [place] [address] Antonella Slaughter MD [address] [place] [address] Other (Primack / surgery clearance needed) Allergies [...] meals. 0 Active Vitamin D3 1.25 MG (50695 UT) Oral Tablet Take by mouth. 0 [...] (Prevnar) 01/08/2021 Pneumococcal Conjugate Vacci ne, 20-valent ([id number]) 01/24/2022 Season Influenza, Quad, PF, Adjuvanted, 65+ [...] Monday And they need an answer please [phone] Meri Ty! * Telephone Encounter - Naty Pitts, MED ASSIST - 03/15/2023 2:[address] Slaughter, please advise. Thank you! * Telephone Encounter - Patria Cooper OSA - 03/15/2023 1:40 PM EST Patient verified identity by spelling of last name and date. Meri from [facility] Anesthesia office calling in that Patient is scheduled for Left Shoulder Replacement surgery done on 03/20/23. They are needing neurology to clear her for surgery due to patients foot drop. Please call Meri to advise documented in this encounter Plan of Treatment Upcoming Encounters Date Type Department Care Team (Late st Contact Info) Description 03/23/2023 12:45 PM EST NeuroDiagnostic Study Neurophysiology, [address] [place] [address] Chu Reed, [address] [place] [address] 03/29/2023 9:00 AM EST Appointment Radiology, [address] [place] [phone] 04/27/2023 10:40 AM EST Office Visit Neurology [facility] [place] [address] [place] [address] Antonella Slaughter MD [address] [facility] [place] [place] [address] Scheduled Procedures Name Priority Associated Diagnoses Date/Ti [...] filedocumented as of this encounter Care Teams Registered Massage Therapist Relationship Specialty Start Date End Date Aguilar Abbasi PA-C [address] [facility] [place] [address] PCP - General Physician Cloth Finishing Range Back Tender 01/08/21 documented as of this encounter
--- OUTSIDE RECORDS SUMMARY | 2023-03-20 07:18 | External Medical Summary | Continuity of Care Document ---
Author Name Unknown Organization [facility] Address [address] [facility], [place] [address] Phone [phone] Problems Active Problems Provider Date Mixed hyperlipidemia Aguilar Abbasi PA-C Onset: 0 05/06/2010 Benign essential hypertension Aguilar Abbasi PA-C Onset: 05/06/2010 External hemorrhoids without complication Merritt Abbasi PA-C Onset: 05/06/2010 Anxiety state Aguilar Abbasi PA-C Onset: 2010 Social History Type Date Description Comments Sex Unknown Tobacco Use Reviewed: 03/09/23 Never Smoked Cigarette s Tobacco Use Reviewed: 03/09/23 Never Smoked Cigars Tobacco Use Reviewed: 03/09/23 Never Smoked A Pipe Smoking Status Reviewed: 03/09/23 Never Smoked A Pipe Smokeless Tobacco 03/09/2023 Never Used Smokeless To bacco ETOH Use Denies alcohol use Recreational Drug Use Denies Drug Use Allergies and adverse reactions Active Allergies Criticality Reaction | Severity Comments Date Paxil Unable to assess criticality nightmares 02/28/2011 Bactrim Unable to assess criticality family HX 08/25/2017 Inactive Allergies NKDA Unable to assess criticality 10/29/2008 Medications Active Medications SIG Qnty Indications Ordering Provider Date Voltaren1% Gel apply 4 grams to left shoulder up to 4x/a day 300gm M25.512 Calvin Bunch JR, DO 02/11/2022 Olmesartan Medoxomil/Hydrochlor -45.5mg Tablets take 1 tablet by mouth once daily 90tabs Calvin Bunch JR, DO 01/24/2022 Vitamin C4515afe (5000 Ut) Capsules 1 by mouth every day 90caps Calvin Bunch JR, DO 10/22/2020 Xanax0.25mg Tablets 1 tab by mouth three times a day as needed anxiety 90tabs Calvin Bunch JR, DO 10/19/2020 Coreg6.25mg Tablets 1 by mouth twice a day 180tabs Calvin Bunch JR, DO 08/30/2019 Yqsfczaxfibkxb4953zb g Tablets Sub once daily Maryjane Rodriguez MD, PhD 12/11/2018 Venlafaxine HCL [id number] Caps ER 24HR Take 1 Capsule By Mouth Every Day 90caps Calvin Bunch JR, DO 01/03/2014 Medications Administered in Office Medication SIG Qnty Indications Ordering Provider Date Injection Methylprednisolone Acetate 20 MGInjection Aguilar Abbasi PA-C 08/15/2022 Rocephin Inj 250 MGInjection M noreen Abbasi PA-C 08/15/2022 Injection Methylprednisolone Acetate 20 MGInjection Aguilar Abbasi PA-C 08/02/2021 Injection Methylprednisolone Acetate 20 MGInjection Maryjane andersen MD, PhD 03/30/2016 Injection Methylprednisolone Acetate 20 MGInjection Aguilar Abbasi PA-C 07/19/2014 Injection Ketorolac Trometha mine Per 15 mg/.5cc (Toradol)Injection Aguilar Abbasi PA-C 08/2012 Injection Methylprednisolone Acetate 20 MGInjection Calvin Bunch JR, DO 07/06/2006 Immunizations CPT Code Status Date Vaccine Lot # [id number] Given 03/09/2023 Influenza Vaccine High Do se 0.5ML Age 65 & > [id number] 31364 Given 01/24/2022 Influenza Vaccine High Do se 0.5ML Age 65 & > [id number] 10940 Given 01/24/2022 Pneumococcal Conjugate-Pr evnar 20 [id number] 29533 Given 04/10/2021 Moderna Covid-1 9 Vaccine 50mcg Booster-EMR Doc Only [id number] 17451 Given 01/08/2021 Pneumococcal Conjugate-Pr evnar 13 [id number] 03290 Given 01/05/2021 Influenza Vacci ne-Administered at another facility 10516 Given 06/13/2020 Moderna Sars-Co v-2 (Cov-19) vacc,100 mcg/ 0.5 mL 12Y+EMR Doc Only [id number] 94044 Given 05/16/2020 Moderna Sars-Co v-2 (Cov-19) vacc,100 mcg/ 0.5 mL 12Y+EMR Doc Only [id number] 19616 Given 04/07/2020 Shingrix 50180 Given 12/06/2019 Shingrix 89161 Given 12/06/2019 Influenza Vaccine High Do se 0.5ML Age 65 & > 11205 Given 03/10/2017 Influenza Virus Vaccine, Quadrivalent, Im Use [id number] 29201 Given 11/17/2011 Td (Tetanus & Diphtheria) [facility] [id number] 63095 Refused 07/19/2022 Moderna Sars-Co v-2 (Covid-19) Vaccine, BiValent Booster [id number] [id number] Refused 12/07/2018 Pneumococcal Conjugate-Pr evnar 13 07191 Refused 12/07/2018 Influenza Virus Vaccine, Quadrivalent, Im Use 08623 Refused 03/05/2018 Influenza Virus Vaccine, Quadrivalent, Im Use 19758 Refused 11/16/2015 Influenza Virus Vaccine, Quadrivalent, Im Use 34423 Refused 10/13/2015 Influenza Virus Vaccine, Quadrivalent, Im Use 93205 Refused 08/07/2015 Influenza Virus Vaccine, Quadrivalent, Im Use 60693 Refused 03/04/2014 Influenza Virus Vaccine, Quadrivalent, Im Use 65289 Refused 02/05/2013 Influenza Vac, Split 3 Yr s And Up Vital Signs Date Vital Result Comment 03/09/2023 7:58am BP Systolic 120 mmHg BP Diastolic 78 mmHg Body Temperature 97.5 F Heart Rate 72 /min Respiratory Rate 16 /min Weight 201.25 lb Weight 91.287 kg 12/09/2022 8:17am BP Systolic 124 mmHg BP Diastolic 74 mmHg Body Temperature 97.8 F Heart Rate 72 /min Respiratory Rate 18 /min Weight 205.31 lb Weight 93.130 kg Procedures Date Code Description Status 03/09/2023 G0008 Influenza Admin Completed 03/09/2023 64859 Electrocardiogram Complete C ompleted 03/09/2023 3078F PVRP Diastolic BP <80 mmHg C ompleted 03/09/2023 3074F PVRP Systolic BP <130 mmHg C ompleted 03/09/2023 [id number] Mammogram Completed 08/12/2020 07545149 Colonoscopy Completed 12/14/2018 530043530 Bone Mineral Density Test Co mpleted Medical Devices Description No Information Available Encounters Type Date Location Provider Dx Diagnosis Office Visit 03/09/2023 8:00a [facility] Vinnie Coleman, DO Z01.810 Encounter for preprocedural cardiovascular examination M19.012 Primary osteoarthrit is, left shoulder I10 Essential (primary) hypertension E78.2 Mixed hyperlipidemia Z23 Encounter for immuni zation Office Visit 12/09/2022 8:30a [facility] Aguilar Abbasi PA-C M21.371 Foot drop, right foot Assessments Date Code Description Provider 03/09/2023 I10 Essential (primary) hyperten kiran Coleman, DO 03/09/2023 Z01.810 Encounter for pr eprocedural cardiovascular examination Vinnie Coleman, DO 03/09/2023 M19.012 Primary osteoarthritis, left shoulder Vinnie Coleman, DO 03/09/2023 I10 Essential (primary) hyperten kiran Coleman, DO 03/09/2023 E78.2 Mixed hyperlipidemia Vinnie Coleman, DO 03/09/2023 Z23 Encounter for immunization T geovany Coleman, DO 12/09/2022 M21.371 Foot drop, right foot Merritt Abbasi PA-C Plan of Treatment Future Appointment(s):* 04/07/2023 10:00 am - Aguilar Abbasi PA-C at [facility] Functional Status Description No Information Available Mental Status Description No Information Available Referrals Refer to Dr Reason for Referral Status Appt [facility] Poor R wave progression on recent EKG C losed 03/15/2023 100 [facility] [phone] Neurology-[facility] evaluation of the ri ght foot drop and peroneal neuropathy Closed 01/12/2023 100 [facility] [phone]"
--- OUTSIDE RECORDS SUMMARY | 2023-03-20 07:18 | External Medical Summary | Continuity of Care Document ---
Author Name Unknown Organization [facility] Address [address] [facility], [place] [address] Phone [phone] Problems Active Problems Provider Date Mixed hyperlipidemia [...] Calvin Bunch JR, DO 02/11/2022 Olmesartan Medoxomil/Hydrochlor pjpirjixv18-37.5mg Tablets take 1 tablet by mouth once daily 90tabs Calvin Bunch JR, DO 01/24/2022 Vitamin Y8463qjx (5000 Ut) Capsules 1 by mouth every day 90caps Calvin Bunch JR, DO 10/22/2020 Xanax0.25mg Tablets 1 tab by mouth three times a day as needed anxiety 90tabs Calvin Bunch JR, DO 10/19/2020 Coreg6.25mg Tablets 1 by mouth twice a day 180tabs Calvin Bunch JR, DO 08/30/2019 Fwfeiemrhbmjpy1357uq g Tablets Sub once daily Maryjane Rodriguez MD, PhD 12/11/2018 Venlafaxine HCL [id number] Caps ER 24HR Take 1 Capsule By [...] CPT Code Status Date Vaccine Lot # [id number] Given 03/09/2023 Influenza Vaccine High Do se 0.5ML Age 65 & > [id number] 22614 Given 01/24/2022 Influenza Vaccine High Do se 0.5ML Age 65 & > [id number] 17535 Given 01/24/2022 Pneumococcal Conjugate-Pr evnar 20 [id number] 12827 Given 04/10/2021 Moderna Covid-1 9 Vaccine 50mcg Booster-EMR Doc Only [id number] 34712 Given 01/08/2021 Pneumococcal Conjugate-Pr evnar 13 [id number] 00104 Given 01/05/2021 Influenza Vacci ne-Administered at another facility [address] Given 06/13/2020 Moderna Sars-Co v-2 (Cov-19) vacc,100 mcg/ 0.5 mL 12Y+EMR Doc Only [id number] 70788 Given 05/16/2020 Moderna Sars-Co v-2 (Cov-19) vacc,100 mcg/ 0.5 mL 12Y+EMR Doc Only [id number] 21340 Given 04/07/2020 Shingrix 24141 Given 12/06/2019 Shingrix 28413 Given 12/06/2019 Influenza Vaccine High Do se 0.5ML Age 65 & > 66471 Given 03/10/2017 Influenza Virus Vaccine, Quadrivalent, Im Use [id number] 40351 Given 11/17/2011 Td (Tetanus & Diphtheria) [facility] [id number] 72928 Refused 07/19/2022 Moderna Sars-Co v-2 (Covid-19) Vaccine, BiValent Booster [id number] [address] Refused 12/07/2018 Pneumococcal Conjugate-Pr evnar 13 98783 Refused 12/07/2018 Influenza Virus Vaccine, Quadrivalent, Im Use 63804 Refused 03/05/2018 Influenza Virus Vaccine, Quadrivalent, Im Use 17079 Refused 11/16/2015 Influenza Virus Vaccine, Quadrivalent, Im Use 05532 Refused 10/13/2015 Influenza Virus Vaccine, Quadrivalent, Im Use 28077 Refused 08/07/2015 Influenza Virus Vaccine, Quadrivalent, Im Use 99357 Refused 03/04/2014 Influenza Virus Vaccine, Quadrivalent, Im Use 44179 Refused 02/05/2013 Influenza Vac, Split 3 Yr [...] Status 03/09/2023 G0008 Influenza Admin Completed 03/09/2023 39115 Electrocardiogram Complete C ompleted 03/09/2023 3078F PVRP Diastolic BP <80 mmHg C ompleted 03/09/2023 3074F PVRP Systolic BP <130 mmHg C ompleted 03/09/2023 42709480 Mammogram Completed 08/12/2020 84610927 Colonoscopy Completed 12/14/2018 939972400 Bone Mineral Density Test Co mpleted Medical Devices Description No Information Available Encounters Type Date Location Provider Dx Diagnosis Office Visit 03/09/2023 8:00a [facility] Vinnie Coleman, DO Z01.810 Encounter for preprocedural cardiovascular examination M19.012 Primary osteoarthrit is, left shoulder I10 Essential (primary) hypertension E78.2 Mixed hyperlipidemia Z23 Encounter for immuni zation Office Visit 12/09/2022 8:30a [facility] Aguilar Abbasi PA-C M21.371 Foot drop, right [...] 10:00 am - Aguilar Abbasi PA-C at [facility] Functional Status Description No Information Available Mental Status Description No Information Available Referrals Refer to Dr Reason for Referral Status Appt [facility]iology-[facility] Poor R wave progression on recent EKG C losed 03/15/2023 100 [facility] [phone] Neurology-[facility] evaluation of the ri ght foot drop and peroneal neuropathy Closed 01/12/2023 [address] [place] [phone]"
--- OUTSIDE RECORDS SUMMARY | 2023-03-20 07:18 | External Medical Summary | Summary of Care ---
Author Name Unknown Organization [facility] Address [address] [place] [address] Phone [phone] Care Team Providers Care Reservations Agent Name Role Phone Aguilar Abbasi PA-C Primary Care Provider Reason for Visit * Reason Onset Date Comments Appointment 03/10/2023 Stereotactic Ann ast Biopsy Encounter Details Date Type Department Care Team (Late st Contact Info) Description 03/10/2023 Telephone Radiology, [facility] [address] [facility] [place] [address] Aguilar Abbasi PA-C [address] [place] [address] Appointment (Stereotactic Breast Biopsy) Allergies Active Allergy Reactions Criticality Noted Date Comments Sulfamethoxazole-Trimethoprim 2022 Paroxetine Hcl 04/27/2015 Bad dreams documented as of this encounter (statuses as of 03/13/2023) Medications Medication Sig Dispensed Refills Start Date End Date Status Lisinopril-Hydrochlorot hiazide 20-12.5 MG per tablet Take 2 Tabs by mouth daily. 1 04/01/2015 Active venlafaxine XR (EFFEXOR XR) 150 MG CP24 daily. 1 02/26/2015 Active ALPRAZolam (XANAX) 0.5 MG Tablet Take 0.5 Tablets by mouth at bedtime as needed for Sleep. 0 Active Carvedilol 6.25 MG Oral Tablet (Coreg) Take 1 Tablet by mouth 2 times a day with morning and evening meals. 0 Active Estradiol 0.1 MG/24HR Transdermal Patch Weekly ([place]) Place 1 Patch topically on the skin once a week. 0 Active Vitamin D3 1.25 MG (44978 UT) Oral Tablet Take by mouth. 0 Active Olmesartan Medoxomil-HCTZ 20-12.5 MG Oral Tablet Take 1 Tablet by mouth in the morning. 0 Active Vitamin B-12 5000 MCG Oral Tablet Disintegrating Take by mouth. 0 Active documented as of this encounter (statuses as of 03/13/2023) Active Problems Problem Noted Date Diagnosed Date Foot drop, right 01/12/2023 Mononeuropathy 01/12/2023 Obesity (BMI 30-39.9) 01/12/2023 documented as of this encounter (statuses as of 03/13/2023) Social History Tobacco Use Types Packs/Day Years [...] encounter Miscellaneous Notes * Telephone Encounter - Lacey Horowitz OSA - 03/13/2023 9:44 AM EST Patient returned call. Scheduled right breast stereotactic biopsy for 03/29/23 at 0900. Patient identified by: name/birthdate Person taught: Patient PATIENT INSTRUCTIONS GIVEN: - General Preoperative Instructions Reviewed - No Medication Instructions Reviewed - patients taking any anticoagulants - No food or fluid restrictions prior procedure - Transformer Stock Clerk recommended - Location and check-in instructions - Wear comfortable, supportive bra Verbalizes understanding of education: Yes Procedure date at time of Imaging Encounter: 03/29/23 What procedure is patient having? Stereotactic Breast Biopsy Laterality confirmed as Right The Patient was given the opportunity to ask questions concerning the procedure. Patient is having left shoulder surgery on 03/20/23 and wanted to wait until after Joseph. If any cancellations before 03/20/23, will notify patient. Signature: PABLO Roque 03/13/2023 * Telephone Encounter - Lacey Horowitz OSA - 03/10/2023 1:52 PM EST LM for patient to return call to [phone] to schedule stereotactic breast biopsy. documented in this encounter Plan of Treatment Upcoming Encounters Date Type Department Care Team (Late st Contact Info) Description 03/23/2023 12:45 PM EST NeuroDiagnostic Study Neurophysiology, [address] [place] [address] Chu Reed DO 200 [facility] [place] [address] 03/29/2023 9:00 AM EST Appointment Radiology, [facility] [address] [facility] [place] [phone] 04/27/2023 10:40 AM EST Office Visit Neurology [facility] [place] [address] [place] [address] Antonella Slaughter MD [address] [place] [address] Scheduled Procedures Name Priority Associated Diagnoses Date/Ti me COLONOSCOPY FLEXIBLE PROXIMA L DIAGNOSTIC Recall Screening for colon cancer Health Maintenance Due Date Last Done Comments Hepatitis C Screening 07/23/1973 DTaP,Tdap,and Td Vaccines (1 - Tdap) 1972 Cologuard 1998 Fecal Occult Blood Test 1998 Sigmoidoscopy 1998 Depression Screening 11/29/2017 11/29/2016 COVID-19 Vaccine ( season) 2022 06/13/2020, 05/16/2020 Mammogram 03/09/2024 03/09/2023, 07/2022, 02/15/2022, [...] filedocumented as of this encounter Care Teams Reservations Agent Relationship Specialty Start Date End Date Aguilar Abbasi PA-C [address] [facility] [place] [address] PCP - General Physician Senior Case Manager 01/08/21 documented as of this encounter
--- OUTSIDE RECORDS SUMMARY | 2023-03-20 07:19 | External Medical Summary | Summary of Care ---
Author Name Unknown Organization [facility] Address [address] [place] [address] Phone [phone] Care Team Providers Care Rn Paralegal Name Role Phone Aguilar Abbasi PA-C Primary Care Provider [phone] Encounter Details Date Type Department Care Team (Late st Contact Info) Description 02/21/2023 Orders Only Access Center, [place] [facility] [address] [place] [address] Ext *DO NOT REMOVE THIS DEPARTMENT* [place] [address] Requisition, External Radiology [address] [place] [address] Encounter for screening mammogram for malignant neoplasm of breast* Allergies Active Allergy Reactions Criticality Noted Date Comments Sulfamethoxazole-Trimethoprim 2022 Paroxetine Hcl 04/27/2015 Bad dreams documented as of this encounter (statuses as of 02/21/2023) Medications Medication Sig Dispensed Refills Start Date End Date Status Lisinopril-Hydrochlorot hiazide 20-12.5 MG per tablet Take 2 Tabs by mouth daily. 1 04/01/2015 Active venlafaxine XR (EFFEXOR XR) 150 MG CP24 1 02/26/2015 Active ALPRAZolam (XANAX) 0.5 MG [...] week. 0 Active Vitamin D3 1.25 MG (43637 UT) Oral Tablet Take by mouth. 0 Active Olmesartan Medoxomil-HCTZ 20-12.5 MG Oral Tablet Take 1 Tablet by mouth in the morning. 0 Active Vitamin B-12 5000 MCG Oral Tablet Disintegrating Take by mouth. 0 Active documented as of this encounter (statuses as of 02/21/2023) Active Problems Problem Noted Date Diagnosed Date Foot drop, right 01/12/2023 Mononeuropathy 01/12/2023 Obesity (BMI 30-39.9) 01/12/2023 documented as of this encounter (statuses as of 02/21/2023) Social History Tobacco Use Types Packs/Day Years [...] Care Team (Late st Contact Info) Description 03/02/2023 10:00 AM EST Office Visit Neurology [facility] Padmini [place] [address] [facility] [place] [address] Antonella Slaughter MD 200 [facility] [place] [address] 03/23/2023 12:45 PM EST NeuroDiagnostic Study Neurophysiology, [address] [place] [address] Chu Reed DO 200 [facility] [place] [address] Scheduled Orders Name Type Priority Associated Diagnoses Orde r Schedule MAMMOGRAM SCREENING DORI BILATERAL Medical Imaging Routine Encounter for screening mammogram for malignant neoplasm of breast Expected: 02/21/2023, Expires: 03/23/2024 Scheduled Procedures Name Priority Associated Diagnoses Date/Ti me COLONOSCOPY FLEXIBLE PROXIMA L DIAGNOSTIC Recall Screening for colon cancer Health Maintenance Due Date Last Done Comments Hepatitis C Screening 07/23/1973 DTaP,Tdap,and Td Vaccines (1 - Tdap) 1972 Cologuard 1998 Fecal Occult Blood Test 1998 Sigmoidoscopy 1998 Depression Screening 11/29/2017 11/29/2016 COVID-19 Vaccine ( season) 2022 06/13/2020, 05/16/2020 Influenza Vaccine (FLU shot) (#1) 2022 01/24/2022, 01/05/2021, 12/06/2019 Mammogram 02/15/2023 02/15/2022, 11/0 12/2020, 01/31/2020, Additional history exists DXA Scan 12/14/2025 12/14/2018 Diabetes Screening 01/12/2026 01/12/2023, 1 , 08/05/2022, Additional history exists Lipid Panel 08/06/2027 08/05/2022, 01/01, 07/09/2021, Additional history exists Colonoscopy 08/12/2030 08/12/2020, 08/12/2020 Colorectal Cancer Screening 08/12/2030 Zoster Vaccines Completed 04/07/2020, 12/06/2019 Pneumococcal Vaccine: 65+ Years Completed 01/24/2022, 01/08/2021 GARDASIL-HPV IMMUNIZATION SERIES Aged Out No longer [...] as of this encounter Visit Diagnoses Diagnosis Encounter for screening mammogram for malignant neoplasm of breast- Primary Other screening mammogram documented in this encounter Care Teams Rn Paralegal Relationship Specialty Start Date End Date Aguilar Abbasi PA-C [address] [facility] [place] [address] PCP - General Physician Rn Primary Care 01/08/21 documented as of this encounter
--- OUTSIDE RECORDS SUMMARY | 2023-03-20 07:19 | External Medical Summary | Summary of Care ---
Author Name Unknown Organization [facility] Address [address] [facility] [address] Phone [phone] Care Team Providers Care Survey Data Technician Name Role Phone Aguilar Abbasi PA-C Primary Care Provider [phone] Encounter Details Date Type Department Care Team (Late st Contact Info) Description 02/28/2023 Telephone Neurology [facility] Padmini [place] [address] [place] [address] Antonella Slaughter MD [address] [place] [address] Allergies Active Allergy Reactions Criticality Noted Date Comments Sulfamethoxazole-Trimethoprim 2022 Paroxetine Hcl 04/27/2015 Bad dreams documented as of this encounter (statuses as of 02/28/2023) Medications Medication Sig Dispensed Refills Start Date [...] week. 0 Active Vitamin D3 1.25 MG (90060 UT) Oral Tablet Take by mouth. 0 Active Olmesartan Medoxomil-HCTZ 20-12.5 MG Oral Tablet Take 1 Tablet by mouth in the morning. 0 Active Vitamin B-12 5000 MCG Oral Tablet Disintegrating Take by mouth. 0 Active documented as of this encounter (statuses as of 02/28/2023) Active Problems Problem Noted Date Diagnosed Date Foot drop, right 01/12/2023 Mononeuropathy 01/12/2023 Obesity (BMI 30-39.9) 01/12/2023 documented as of this encounter (statuses as of 02/28/2023) Social History Tobacco Use Types Packs/Day Years [...] encounter Miscellaneous Notes * Telephone Encounter - Antonella Slaughter MD - 02/28/2023 9:14 AM EST I need more info than on EMG done by Dr. Gongora; I'll order another to be done here documented in this encounter Plan of Treatment Upcoming Encounters Date Type Department Care Team (Late st Contact Info) Description 03/02/2023 10:00 AM EST Office Visit Neurology [facility] [place] [address] [facility] [place] [address] Antonella Slaughter MD [address] [facility] [place] [address] 03/23/2023 12:45 PM EST NeuroDiagnostic Study Neurophysiology, [place] [address] [place] [address] Chu Reed DO [address] [facility] [place] [address] Scheduled Procedures Name Priority Associated Diagnoses Date/Ti me COLONOSCOPY FLEXIBLE PROXIMA L DIAGNOSTIC Recall Screening for colon cancer Health Maintenance Due Date Last Done Comments Hepatitis C Screening 07/23/1971 DTaP,Tdap,and Td Vaccines (1 - Tdap) 1972 Cologuard 1998 Fecal Occult Blood Test 1998 Sigmoidoscopy 1998 Depression Screening 11/29/2017 11/29/2016 COVID-19 Vaccine (3 - season) 2022 06/13/2020, 05/16/2020 Influenza Vaccine (FLU [...] as of this encounter Visit Diagnoses Diagnosis Foot drop, right- Primary Other acquired deformity of ankle and foot documented in this encounter Care Teams Survey Data Technician Relationship Specialty Start Date End Date Aguilar Abbasi PA-C [address] [facility] [place] [address] PCP - General Physician Experimental Mechanic [employer] 01/08/21 documented as of this encounter
--- OUTSIDE RECORDS SUMMARY | 2023-03-20 07:19 | External Medical Summary | Summary of Care ---
Author Name Unknown Organization [facility] Address [address] [facility] [place] [address] Phone [phone] Care Team Providers Care Grocery Clerk Name Role Phone Elroy Aguilar Silva PA-C Primary Care Provider [phone] Encounter Details Date Type Department Care Team (Latest Contact Info) Description 03/09/2023 12:13 PM EST - 03/09/2023 11:59 PM EST Hospital Encounter Radiology, [address] [place] [address] Arrived Discharge Disposition: Home - Self Care Allergies Active Allergy Reactions Criticality Noted Date Comments Sulfamethoxazole-Trimethoprim 2022 Paroxetine Hcl 04/27/2015 Bad dreams documented as of this encounter (statuses as of 03/10/2023) Medications Medication Sig Dispensed Refills Start Date [...] week. 0 Active Vitamin D3 1.25 MG (36903 UT) Oral Tablet Take by mouth. 0 Active Olmesartan Medoxomil-HCTZ 20-12.5 MG Oral Tablet Take 1 Tablet by mouth in the morning. 0 Active Vitamin B-12 5000 MCG Oral Tablet Disintegrating Take by mouth. 0 Active documented as of this encounter (statuses as of 03/10/2023) Active Problems Problem Noted Date Diagnosed Date Foot drop, right 01/12/2023 Mononeuropathy 01/12/2023 Obesity (BMI 30-39.9) 01/12/2023 documented as of this encounter (statuses as of 03/10/2023) Social History Tobacco Use Types Packs/Day Years [...] 03/23/2023 12:45 PM EST NeuroDiagnostic Study Neurophysiology, [place] [place] [address] Chu Reed DO 200 [facility] [place] [address] 04/27/2023 10:40 AM EST [facility] [address] [place] [address] Antonella Slaughter MD [address] [place] [address] Scheduled Procedures Name Priority Associated Diagnoses Date/Ti [...] Procedure Name Priority Date/Time Associated Diagnosis Comments MAMMOGRAM DIAGNOSTIC DORI RIGHT Routine 03/09/2023 12:36 PM EST Inconclusive mammogram documented in this encounter Results * (ABNORMAL) MAMMOGRAM DIAGNOSTIC DORI RIGHT (03/09/2023 12:36 PM EST) Anatomical Region Laterality Modality Breast Right Mammography Addenda Addendum by Marcus Taveras DO on 03/10/2023 9:50 AM EST Addendum This addendum is to correct a typographical error in the impression of the original report. The impression should read low suspicion upper inner right breast calcifications. The recommendation of stereotactic breast biopsy remains unchanged. Narrative 03/09/2023 12:58 PM EST Result MAMMOGRAM DIAGNOSTIC DORI RIGHT History Inconclusive mammogram Family medical history includes breast cancer in cousin (maternal). Films Compared She was recalled from screening mammogram dated 03/06/2023 for questioned right breast calcifications. Findings The right breast has scattered areas of fibroglandular density. Right Magnification views of the upper inner right breast calcifications reveals coarse heterogenous and amorphous calcifications measuring 0.5 cm. No suspicious mass, or distortion is identified. Impression No suspicion upper inner right breast calcifications. BI-RADS Category: 4 - Suspicious. Recommendation Stereotactic breast biopsy is recommended for the right breast. Digital breast tomosynthesis was performed. This digital mammogram has been analyzed with the computer aided detection system. This notice contains the results of your recent mammogram, including information about breast density. If your mammogram shows that your breast tissue is dense, you should know that dense breast tissue is a common finding and is not abnormal. Statistics show many women could have dense or highly dense breasts. Dense breast tissue can make it harder to find cancer on a mammogram and may be associated with an increased risk of cancer. This information about the result of your mammogram is given to you to raise your awareness and to inform your conversations with your physician. Together, you can decide which screening options are right for you, based on your mammogram results, individual risk factors or physical examination. A report of your results was sent to your physician. Your mammographic breast density on today's study is described above. There are four categories of breast density on mammography. Fatty breasts and those with scattered fibroglandular tissue are not considered dense. Heterogeneously dense or extremely dense tissue is considered "dense". Please understand that assessment of breast density may vary from year to year. This examination was performed at [facility], [address] [place] [id number]. Aguilar Abbasi PA-C RAD MAMMOGRAPHY documented in this encounter Visit Diagnoses Diagnosis Inconclusive mammogram documented in this encounter Care Teams Grocery Clerk Relationship Specialty Start Date End Date Aguilar Abbasi PA-C [address] [place] [address] [place] [address] PCP - General Physician Facility Designer 01/08/21 documented as of this encounter
--- OUTSIDE RECORDS SUMMARY | 2023-03-20 07:19 | External Medical Summary | Continuity of Care Document ---
Author Name Unknown Organization [facility] Address [address] [facility], [place] [address] Phone [phone] Problems Active Problems Provider Date Mixed hyperlipidemia [...] Calvin Bunch JR, DO 02/11/2022 Olmesartan Medoxomil/Hydrochlor qnjmxnjsi26-79.5mg Tablets take 1 tablet by mouth once daily 90tabs Calvin Bunch JR, DO 01/24/2022 Vitamin O8988tzx (5000 Ut) Capsules 1 by mouth every day 90caps Calvin uBnch JR, DO 10/22/2020 Xanax0.25mg Tablets 1 tab by mouth three times a day as needed anxiety 90tabs Calvin Bunch JR, DO 10/19/2020 Coreg6.25mg Tablets 1 by mouth twice a day 180tabs Calvin Bunch JR, DO 08/30/2019 Qdlmhzsessxaba6917nd g Tablets Sub once daily Maryjane Rodriguez MD, PhD 12/11/2018 Venlafaxine HCL [id number] Caps ER 24HR Take 1 Capsule By [...] CPT Code Status Date Vaccine Lot # [id number] Given 03/09/2023 Influenza Vaccine High Do se 0.5ML Age 65 & > [id number] 08445 Given 01/24/2022 Influenza Vaccine High Do se 0.5ML Age 65 & > [id number] 12804 Given 01/24/2022 Pneumococcal Conjugate-Pr evnar 20 [id number] 16231 Given 04/10/2021 Moderna Covid-1 9 Vaccine 50mcg Booster-EMR Doc Only [id number] 68313 Given 01/08/2021 Pneumococcal Conjugate-Pr evnar 13 [id number] 38785 Given 01/05/2021 Influenza Vacci ne-Administered at another facility [address] Given 06/13/2020 Moderna Sars-Co v-2 (Cov-19) vacc,100 mcg/ 0.5 mL 12Y+EMR Doc Only [id number] 17911 Given 05/16/2020 Moderna Sars-Co v-2 (Cov-19) vacc,100 mcg/ 0.5 mL 12Y+EMR Doc Only [id number] 20394 Given 04/07/2020 Shingrix 83942 Given 12/06/2019 Shingrix 14993 Given 12/06/2019 Influenza Vaccine High Do se 0.5ML Age 65 & > 66165 Given 03/10/2017 Influenza Virus Vaccine, Quadrivalent, Im Use [id number] 76210 Given 11/17/2011 Td (Tetanus & Diphtheria) [facility] [id number] 78534 Refused 07/19/2022 Moderna Sars-Co v-2 (Covid-19) Vaccine, BiValent Booster [id number] Refused 12/07/2018 Pneumococcal Conjugate-Pr evnar 13 55666 Refused 12/07/2018 Influenza Virus Vaccine, Quadrivalent, Im Use 51927 Refused 03/05/2018 Influenza Virus Vaccine, Quadrivalent, Im Use 47580 Refused 11/16/2015 Influenza Virus Vaccine, Quadrivalent, Im Use 93967 Refused 10/13/2015 Influenza Virus Vaccine, Quadrivalent, Im Use 14839 Refused 08/07/2015 Influenza Virus Vaccine, Quadrivalent, Im Use 86980 Refused 03/04/2014 Influenza Virus Vaccine, Quadrivalent, Im Use 72883 Refused 02/05/2013 Influenza Vac, Split 3 Yr [...] kg Procedures Date Code Description Status 03/09/2023 96082 Electrocardiogram Complete C ompleted 03/09/2023 3078F PVRP Diastolic BP <80 mmHg C ompleted 03/09/2023 3074F PVRP Systolic BP <130 mmHg C ompleted 03/06/2023 84791226 Mammogram Completed 08/12/2020 69237776 Colonoscopy Completed 12/14/2018 [id number] Bone Mineral Density Test Co mpleted Medical Devices Description No Information Available Encounters Type Date Location Provider Dx Diagnosis Office Visit 03/09/2023 8:00a [facility] Vinnie Coleman, DO Z01.810 Encounter for preprocedural cardiovascular examination M19.012 Primary osteoarthrit is, left shoulder I10 Essential (primary) hypertension E78.2 Mixed hyperlipidemia Office Visit 12/09/2022 8:30a [facility] Aguilar Abbasi PA-C M21.371 Foot drop, right foot Assessments Date Code Description Provider 03/09/2023 Z01.810 Encounter for pr eprocedural cardiovascular examination Vinnie Coleman, DO 03/09/2023 M19.012 Primary osteoarthritis, left shoulder Vinnie Coleman, DO 03/09/2023 I10 Essential (primary) hyperten kiran Vinnie Coleman, DO 03/09/2023 E78.2 Mixed hyperlipidemia Vinnie Coleman, DO 12/09/2022 M21.371 Foot drop, right foot Merritt Abbasi PA-C Plan of Treatment Future Appointment(s):* 04/07/2023 10:00 am - Aguilar Abbasi PA-C at [facility] 03/09/2023 - Vinnie Coleman, * Z01.810 Encounter for preprocedural cardiovascular examination * M19.012 Primary osteoarthritis, left shoulder * I10 Essential (primary) hypertension* Recommendations:* 1. Continue current medications 2. Continue to watch diet, limit salt intake and exercise 3. Discussed need for appropriate labs, screening tests * E78.2 Mixed hyperlipidemia* Recommendations:* 1. Continue current medication 2. Continue low cholesterol/fat diet and exercise 3. Discussed appropriate labs and screening tests Functional Status Description No Information Available Mental Status Description No Information Available Referrals Refer to Reason for Referral Status Appt Nacho e [facility] [place] of the ri ght foot drop and peroneal neuropathy Closed 01/12/[address] [place] [address] [phone]"
--- OUTSIDE RECORDS SUMMARY | 2023-03-20 07:19 | External Medical Summary | Summary of Care ---
Author Name Unknown Organization [facility] Address [address] [place] [address] Phone [phone] Care Team Providers Care Therapy Tech Name Role Phone Aguilar Abbasi PA-C Primary Care Provider [phone] Reason for Visit * Reason Onset Date Comments Appointment 02/16/2023 LVM TO SCHED EMG Encounter Details Date Type Department Care Team (Late st Contact Info) Description 02/16/2023 Telephone Neurophysiology, [place] [address] [place] [address] Jw, Mila [facility] [address] [place] [address] Appointment (LVM TO SCHED EMG) Allergies Active Allergy Reactions Criticality Noted Date Comments Sulfamethoxazole-Trimethoprim 2022 Paroxetine Hcl 04/27/2015 Bad dreams documented as of this encounter (statuses as of 02/16/2023) Medications Medication Sig Dispensed Refills Start Date [...] week. 0 Active Vitamin D3 1.25 MG (78272 UT) Oral Tablet Take by mouth. 0 Active Olmesartan Medoxomil-HCTZ 20-12.5 MG Oral Tablet Take 1 Tablet by mouth in the morning. 0 Active Vitamin B-12 5000 MCG Oral Tablet Disintegrating Take by mouth. 0 Active documented as of this encounter (statuses as of 02/16/2023) Active Problems Problem Noted Date Diagnosed Date Foot drop, right 01/12/2023 Mononeuropathy 01/12/2023 Obesity (BMI 30-39.9) 01/12/2023 documented as of this encounter (statuses as of 02/16/2023) Social History Tobacco Use Types Packs/Day Years [...] encounter Miscellaneous Notes * Telephone Encounter - Fartun Corona OSA - 02/16/2023 8:55 AM EST LVM TO SCHED EMG documented in this encounter Plan of Treatment Upcoming Encounters Date Type Department Care Team (Late st Contact Info) Description 03/02/2023 10:00 AM EST Office Visit Neurology [facility] Padmini [place] [address] [facility] [place] [address] Antonella Slaughter MD 200 [facility] [place] [address] Scheduled Procedures Name Priority Associated Diagnoses Date/Ti [...] filedocumented as of this encounter Care Teams Therapy Tech Relationship Specialty Start Date End Date Aguilar Abbasi PA-C [address] [facility] [place] [address] PCP - General Physician Lunch Wagon Operator 01/08/21 documented as of this encounter
--- OUTSIDE RECORDS SUMMARY | 2023-03-20 07:19 | External Medical Summary | Summary of Care ---
Author Name Unknown Organization [facility] Address [address] [place] [address] Phone [phone] Care Team Providers Care Bandoleer Straightener Stamper Name Role Phone Aguilar Abbasi PA-C Primary Care Provider [phone] Encounter Details Date Type Department Care Team (Late st Contact Info) Description 03/07/2023 Orders Only Access Center, [place] [address] [place] [address] Ext *DO NOT REMOVE THIS DEPARTMENT* [place] [address] Requisition, External Radiology [address] [place] [address] Inconclusive mammogram* Allergies Active Allergy Reactions Criticality Noted Date Comments Sulfamethoxazole-Trimethoprim 2022 Paroxetine Hcl 04/27/2015 Bad dreams documented as of this encounter (statuses as of 03/07/2023) Medications Medication Sig Dispensed Refills Start Date [...] week. 0 Active Vitamin D3 1.25 MG (19479 UT) Oral Tablet Take by mouth. 0 Active Olmesartan Medoxomil-HCTZ 20-12.5 MG Oral Tablet Take 1 Tablet by mouth in the morning. 0 Active Vitamin B-12 5000 MCG Oral Tablet Disintegrating Take by mouth. 0 Active documented as of this encounter (statuses as of 03/07/2023) Active Problems Problem Noted Date Diagnosed Date Foot drop, right 01/12/2023 Mononeuropathy 01/12/2023 Obesity (BMI 30-39.9) 01/12/2023 documented as of this encounter (statuses as of 03/07/2023) Social History Tobacco Use Types Packs/Day Years [...] Team (Late st Contact Info) Description 03/09/2023 12:30 PM EST [place]ointment [place] [address] 03/09/2023 1:00 PM EST Appointment [place]iology[place] [address] 03/23/2023 12:45 PM EST NeuroDiagnostic Study Neurophysiology, [place] [address] Chu Reed DO [address] [place] [address] 04/27/2023 10:40 AM EST Office Visit Neurology [place] Keli Gutierrez [address] [place] [address] Antonella Slaughter MD 200 [facility] [place] [address] Scheduled Orders Name Type Priority Associated Diagnoses Orde r Schedule MAMMOGRAM DIAGNOSTIC DORI RIGHT Medical Imaging Routine Inconclusive mammogram Expected: 03/07/2023, Expires: 04/07/2024 BREAST LIMITED RIGHT Medical Imaging Routine Inconclusive mammogram Expected: 03/07/2023, Expires: 04/07/2024 Scheduled Procedures Name Priority Associated Diagnoses Date/Ti [...] shot) (#1) 2022 01/24/2022, 01/05/2021, 12/06/2019 Mammogram 03/06/2024 03/06/2023, 02/01, 02/09/2021, Additional history exists DXA Scan 12/14/2025 12/14/2018 [...] as of this encounter Visit Diagnoses Diagnosis Inconclusive mammogram- Primary documented in this encounter Care Teams Bandoleer Straightener Stamper Relationship Specialty Start Date End Date Aguilar Abbasi PA-C [address] [facility] [place] [address] PCP - General Physician Price Changer 01/08/21 documented as of this encounter
--- OUTSIDE RECORDS SUMMARY | 2023-03-20 07:19 | External Medical Summary | Summary of Care ---
Author Name Unknown Organization [facility] Address [address] [place] [facility] [place] [place] [address] Phone [phone] Care Team Providers Care Sleeve Separator Name Role Phone Aguilar Abbasi PA-C Primary Care Provider Reason for Visit * Reason Onset Date Comments Order Request 03/10/2023 Breast BX Encounter Details Date Type Department Care Team (Late st Contact Info) Description 03/10/2023 [address]phone [address] [facility] [place] [address] Aguilar Abbasi PA-C [address] [place] [address] Order Request (Breast BX) Allergies Active Allergy Reactions Criticality Noted Date [...] week. 0 Active Vitamin D3 1.25 MG (28204 UT) Oral Tablet Take by mouth. 0 [...] encounter Miscellaneous Notes * Telephone Encounter - Tri Pitts OSA - 03/10/2023 9:03 AM EST Called the [facility] to request updated orders, and spoke with Kenney. Per 03/09 diagnostic mammogram, patient needs to be scheduled for a right stereotactic breast biopsy. Kenney states she will fax order to [phone]. Lacey, please help schedule patient at [facility]. Thank you documented in this encounter Plan of Treatment Upcoming Encounters Date Type Department Care Team (Late st Contact Info) Description 03/23/2023 12:45 PM EST NeuroDiagnostic Study Neurophysiology, [place] [address] Chu Reed DO [address] [place] [address] 04/27/2023 10:40 AM EST [facility] [place] 200 [facility] [place] [address] Antonella Slaughter MD [address] [place] [address] Scheduled Procedures Name Priority Associated Diagnoses Date/Ti [...] filedocumented as of this encounter Care Teams Sleeve Separator Relationship Specialty Start Date End Date Aguilar Abbasi PA-C [address] [place] [address] PCP - General Physician Driver Courier 01/08/21 documented as of this encounter
--- OUTSIDE RECORDS SUMMARY | 2023-03-20 07:19 | External Medical Summary | Continuity of Care Document ---
Author Name Unknown Organization [facility] Address [address], [place] [address] Phone [phone] Problems Active Problems Provider Date Mixed hyperlipidemia [...] Calvin Bunch JR, DO 02/11/2022 Olmesartan Medoxomil/Hydrochlor oakcxncnc86-97.5mg Tablets take 1 tablet by mouth once daily 90tabs Calvin Bunch JR, DO 01/24/2022 Vitamin [id number] (5000 Ut) Capsules 1 by mouth every day 90caps Calvin Bunch JR, DO 10/22/2020 Xanax0.25mg Tablets 1 tab by mouth three times a day as needed anxiety 90tabs Calvin Bunch JR, DO 10/19/2020 Coreg6.25mg Tablets 1 by mouth twice a day 180tabs Calvin Bunch JR, DO 08/30/2019 Cpcdidjbbnvotd6172rm g Tablets Sub once daily Maryjane Rodriguez MD, PhD 12/11/2018 Venlafaxine HCL [id number] Caps ER 24HR Take 1 Capsule By [...] CPT Code Status Date Vaccine Lot # [id number] Given 03/09/2023 Influenza Vaccine High Do se 0.5ML Age 65 & > [id number] 81334 Given 01/24/2022 Influenza Vaccine High Do se 0.5ML Age 65 & > [id number] 68484 Given 01/24/2022 Pneumococcal Conjugate-Pr evnar 20 [id number] 64486 Given 04/10/2021 Moderna Covid-1 9 Vaccine 50mcg Booster-EMR Doc Only [id number] 96084 Given 01/08/2021 Pneumococcal Conjugate-Pr evnar 13 [id number] 42378 Given 01/05/2021 Influenza Vacci ne-Administered at another facility 08247 Given 06/13/2020 Moderna Sars-Co v-2 (Cov-19) vacc,100 mcg/ 0.5 mL 12Y+EMR Doc Only [id number] 62212 Given 05/16/2020 Moderna Sars-Co v-2 (Cov-19) vacc,100 mcg/ 0.5 mL 12Y+EMR Doc Only [id number] 66612 Given 04/07/2020 Shingrix 14047 Given 12/06/2019 Shingrix 53682 Given 12/06/2019 Influenza Vaccine High Do se 0.5ML Age 65 & > 65029 Given 03/10/2017 Influenza Virus Vaccine, Quadrivalent, Im Use [id number] 60016 Given 11/17/2011 Td (Tetanus & Diphtheria) [facility] [id number] 06631 Refused 07/19/2022 Moderna Sars-Co v-2 (Covid-19) Vaccine, BiValent Booster [id number] 92470 Refused 12/07/2018 Pneumococcal Conjugate-Pr evnar 13 96523 Refused 12/07/2018 Influenza Virus Vaccine, Quadrivalent, Im Use 63315 Refused 03/05/2018 Influenza Virus Vaccine, Quadrivalent, Im Use 74377 Refused 11/16/2015 Influenza Virus Vaccine, Quadrivalent, Im Use 11237 Refused 10/13/2015 Influenza Virus Vaccine, Quadrivalent, Im Use 13502 Refused 08/07/2015 Influenza Virus Vaccine, Quadrivalent, Im Use 68586 Refused 03/04/2014 Influenza Virus Vaccine, Quadrivalent, Im Use 11895 Refused 02/05/2013 Influenza Vac, Split 3 Yr [...] 93.130 kg Procedures Date Code Description Status 03/06/2023 22426161 Mammogram Completed 08/12/2020 [id number] Colonoscopy Completed 12/14/2018 [id number] Bone Mineral Density Test Co mpleted Medical Devices Description No Information Available Encounters Type Date Location Provider Dx Diagnosis Office Visit 12/09/2022 8:30a [facility] Abbasi PA-C M21.371 Foot drop, ri ght foot Assessments Date Code Description Provider 03/09/2023 [...] 10:00 am - Aguilar Abbasi PA-C at [facility] 03/09/2023 - Vinnie Coleman, DO* Z01.810 Encounter for preprocedural cardiovascular examination * [...] Reason for Referral Status Appt [facility] [place] [place] foot drop and peroneal neuropathy Closed 01/12/[address] [place] [address] [phone]"
--- OUTSIDE RECORDS SUMMARY | 2023-03-20 07:19 | External Medical Summary | Summary of Care ---
Author Name Unknown Organization [facility] Address [address] [place] [address] Phone [phone] Care Team Providers Care Income Tax Investigator Name Role Phone Aguilar Abbasi PA-C Primary Care Provider [phone] Encounter Details Date Type Department Care Team (Late st Contact Info) Description 02/15/2023 Telephone Neurology [facility] [address] [place] [address] Antonella Slaughter MD [address] [place] [address] Allergies Active Allergy Reactions Criticality Noted Date Comments Sulfamethoxazole-Trimethoprim 2022 Paroxetine Hcl 04/27/2015 Bad dreams documented as of this encounter (statuses as of 02/15/2023) Medications Medication Sig Dispensed Refills Start Date [...] week. 0 Active Vitamin D3 1.25 MG (72270 UT) Oral Tablet Take by mouth. 0 Active Olmesartan Medoxomil-HCTZ 20-12.5 MG Oral Tablet Take 1 Tablet by mouth in the morning. 0 Active Vitamin B-12 5000 MCG Oral Tablet Disintegrating Take by mouth. 0 Active documented as of this encounter (statuses as of 02/15/2023) Active Problems Problem Noted Date Diagnosed Date Foot drop, right 01/12/2023 Mononeuropathy 01/12/2023 Obesity (BMI 30-39.9) 01/12/2023 documented as of this encounter (statuses as of 02/15/2023) Social History Tobacco Use Types Packs/Day Years [...] Telephone Encounter - Antonella Slaughter MD - 02/15/2023 3:45 PM EST I reviewed Dr. Gongora's emg report; I neeed more information; I'll order one here documented in this encounter Plan of Treatment Upcoming Encounters Date Type Department Care Team (Late st Contact Info) Description 03/02/2023 10:00 AM EST Office Visit [facility] [facility] [place] [address] [facility] [place] [address] Antonella Slaughter MD [address] [facility] [place] [address] Scheduled Procedures Name Priority Associated Diagnoses Date/Ti [...] filedocumented as of this encounter Care Teams Income Tax Investigator Relationship Specialty Start Date End Date Aguilar Abbasi PA-C [address] [facility] [place] [address] PCP - General Physician Insights Analyst 01/08/21 documented as of this encounter
--- OUTSIDE RECORDS SUMMARY | 2023-03-20 07:19 | External Medical Summary | Summary of Care ---
Author Name Unknown Organization [facility] Address [address] [place] [address] Phone [phone] Care Team Providers Care Store Planner Name Role Phone Aguilar Abbasi PA-C Primary Care Provider [phone] Reason for Visit * Reason Onset Date Comments Appointment 02/15/2023 Encounter Details Date Type Department Care Team (Late st Contact Info) Description 02/15/2023 Telephone Neurology [facility] [place] [address] [facility] [place] [address] Antonella Slaughter MD [address] [facility] [place] [address] Appointment Allergies Active Allergy Reactions Criticality Noted Date [...] week. 0 Active Vitamin D3 1.25 MG (15570 UT) Oral Tablet Take by mouth. 0 [...] encounter Miscellaneous Notes * Telephone Encounter - Elaine Herrera OSA - 02/16/2023 11:51 AM EST Pt has been contacted to schedule EMG * Telephone Encounter - Antonella Slaughter MD - 02/15/2023 3:45 PM EST I reviewed Dr. Gongora's emg report; I neeed more information; I'll order one here documented in this encounter Plan of Treatment Upcoming Encounters Date Type Department Care Team (Late st Contact Info) Description 03/02/2023 10:00 AM EST Office Visit [facility]rology [facility] Gut[facility] [address] [facility] [place] [address] Antonella Slaughter MD 200 [facility] [place] [address] Scheduled Procedures Name Priority Associated Diagnoses Date/Ti [...] filedocumented as of this encounter Care Teams Store Planner Relationship Specialty Start Date End Date Aguilar Abbasi PA-C [address] [facility] [place] [address] PCP - General Physician Bridge Painter Helper 01/08/21 documented as of this encounter
--- OUTSIDE RECORDS SUMMARY | 2023-03-20 07:19 | External Medical Summary | Continuity of Care Document ---
Author Name Unknown Organization [facility] Address [address], [place] [address] Phone [phone] Problems Active Problems Provider Date Mixed hyperlipidemia [...] Calvin Bunch JR, DO 02/11/2022 Olmesartan Medoxomil/Hydrochlor wmanfuedg85-26.5mg Tablets take 1 tablet by mouth once daily 90tabs Calvin Bunch JR, DO 01/24/2022 Vitamin N7298oni (5000 Ut) Capsules 1 by mouth every day 90caps Calvin Bunch JR, DO 10/22/2020 Xanax0.25mg Tablets 1 tab by mouth three times a day as needed anxiety 90tabs Calvin Bunch JR, DO 10/19/2020 Coreg6.25mg Tablets 1 by mouth twice a day 180tabs Calvin Bunch JR, DO 08/30/2019 Ylbgtpfpiotfaw1528oq g Tablets Sub once daily Maryjane Rodriguez MD, PhD 12/11/2018 Venlafaxine HCL LU025dm Caps ER 24HR Take 1 Capsule By [...] CPT Code Status Date Vaccine Lot # [id number] Given 03/09/2023 Influenza Vaccine High Do se 0.5ML Age 65 & > [id number] 31765 Given 01/24/2022 Influenza Vaccine High Do se 0.5ML Age 65 & > [id number] 82211 Given 01/24/2022 Pneumococcal Conjugate-Pr evnar 20 [id number] 33989 Given 04/10/2021 Moderna Covid-1 9 Vaccine 50mcg Booster-EMR Doc Only [id number] 89124 Given 01/08/2021 Pneumococcal Conjugate-Pr evnar 13 [id number] 36966 Given 01/05/2021 Influenza Vacci ne-Administered at another facility 76[address] Given 06/13/2020 Moderna Sars-Co v-2 (Cov-19) vacc,100 mcg/ 0.5 mL 12Y+EMR Doc Only [id number] 23634 Given 05/16/2020 Moderna Sars-Co v-2 (Cov-19) vacc,100 mcg/ 0.5 mL 12Y+EMR Doc Only [id number] 58970 Given 04/07/2020 Shingrix 66018 Given 12/06/2019 Shingrix 95389 Given 12/06/2019 Influenza Vaccine High Do se 0.5ML Age 65 & > 63627 Given 03/10/2017 Influenza Virus Vaccine, Quadrivalent, Im Use [id number] 75519 Given 11/17/2011 Td (Tetanus & Diphtheria) [facility] [id number] 79712 Refused 07/19/2022 Moderna Sars-Co v-2 (Covid-19) Vaccine, BiValent Booster 12y+ 65984 Refused 12/07/2018 Pneumococcal Conjugate-Pr evnar 13 99349 Refused 12/07/2018 Influenza Virus Vaccine, Quadrivalent, Im Use 66576 Refused 03/05/2018 Influenza Virus Vaccine, Quadrivalent, Im Use 94793 Refused 11/16/2015 Influenza Virus Vaccine, Quadrivalent, Im Use 03113 Refused 10/13/2015 Influenza Virus Vaccine, Quadrivalent, Im Use 98029 Refused 08/07/2015 Influenza Virus Vaccine, Quadrivalent, Im Use 89024 Refused 03/04/2014 Influenza Virus Vaccine, Quadrivalent, Im Use 30687 Refused 02/05/2013 Influenza Vac, Split 3 Yr [...] kg Procedures Date Code Description Status 03/09/2023 31638 Electrocardiogram Complete C ompleted 03/09/2023 3078F PVRP Diastolic BP <80 mmHg C ompleted 03/09/2023 3074F PVRP Systolic BP <130 mmHg C ompleted 03/06/2023 54342507 Mammogram Completed 08/12/2020 [id number] Colonoscopy Completed 12/14/2018 [id number] Bone Mineral Density Test Co mpleted Medical Devices Description No Information Available Encounters Type Date Location Provider Dx Diagnosis Office Visit 03/09/2023 8:00a [facility] Vinnie Coleman, DO Z01.810 Encounter for preprocedural cardiovascular examination 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
--- OUTSIDE RECORDS SUMMARY | 2023-03-20 07:19 | External Medical Summary | Summary of Care ---
Author Name Unknown Organization [facility] Address [address] [place] [address] Phone [phone] Care Team Providers Care Automobile Relocation Engineer Name Role Phone Aguilar Abbasi PA-C Primary Care Provider Reason for Visit * Reason Onset Date Comments Order Request 03/10/2023 Breast BX Encounter Details Date Type Department Care Team (Late st Contact Info) Description 03/10/2023 Telephone [address] [facility] [place] [address] Aguilar Abbasi PA-C [address] [place] [address] Order Request (Breast BX) Allergies [...] week. 0 Active Vitamin D3 1.25 MG (55361 UT) Oral Tablet Take by mouth. 0 [...] - 03/10/2023 9:03 AM EST Called the [facility] to request updated orders, and spoke with Kenney. Per 03/09 diagnostic mammogram, patient needs to be scheduled for a right stereotactic breast biopsy. Kenney states she will fax order to [phone]. Lacey, please help schedule patient at [facility]. Thank you documented in this encounter Plan of Treatment Upcoming Encounters Date Type Department Care Team (Late st Contact Info) Description 03/23/2023 12:45 PM EST NeuroDiagnostic Study Neurophysiology, [place] [address] Chu Reed DO [address] [place] [address] 04/27/2023 10:40 AM EST Office Visit Neu[place] [facility] [place] [place] [address] [facility] [place] [address] Antonella Slaughter MD [address] [place] [address] Scheduled Procedures Name Priority Associated Diagnoses Date/Ti [...] filedocumented as of this encounter Care Teams Automobile Relocation Engineer Relationship Specialty Start Date End Date Aguilar Abbasi PA-C [address] [place] [address] PCP - General Physician Yarding And Folding Machine Operator 01/08/21 documented as of this encounter
--- OUTSIDE RECORDS SUMMARY | 2023-03-20 07:19 | External Medical Summary | Summary of Care ---
Author Name Unknown Organization [facility] Address [address] [place] [address] Phone [phone] Care Team Providers Care Pharmacy Salesperson Name Role Phone Aguilar Abbasi PA-C Primary Care Provider [phone] Reason for Visit * Reason Comments Return Neuro Encounter Details Date Type Department Care Team (Late st Contact Info) Description 03/02/2023 10:00 AM EST [facility] [address] [facility] [place] [address] Antonella Slaughter MD [address] [facility] [place] [address] Foot drop, right* Allergies Active Allergy Reactions Criticality Noted Date Comments Sulfamethoxazole-Trimethoprim 2022 Paroxetine Hcl 04/27/2015 Bad dreams documented as of this encounter (statuses as of 03/02/2023) Medications Medication Sig Dispensed Refills Start Date [...] week. 0 Active Vitamin D3 1.25 MG (70750 UT) Oral Tablet Take by mouth. 0 Active Olmesartan Medoxomil-HCTZ 20-12.5 MG Oral Tablet Take 1 Tablet by mouth in the morning. 0 Active Vitamin B-12 5000 MCG Oral Tablet Disintegrating Take by mouth. 0 Active documented as of this encounter (statuses as of 03/02/2023) Active Problems Problem Noted Date Diagnosed Date Foot drop, right 01/12/2023 Mononeuropathy 01/12/2023 Obesity (BMI 30-39.9) 01/12/2023 documented as of this encounter (statuses as of 03/02/2023) Social History Tobacco Use Types Packs/Day Years [...] Sign Reading Time Taken Comments Blood Pressure 128/74 03/02/2023 9:44 AM EST Pulse 56 03/02/2023 9:44 AM EST Temperature 36 C (96.8 F) 03/02/2023 9:44 AM EST Respiratory Rate 18 03/02/2023 9:44 AM EST Oxygen Saturation 99% 03/02/2023 9:44 AM EST Inhaled Oxygen Concentration - - Weight 93 kg (205 lb 1.6 oz) 03/02/2023 9:44 AM EST Height - - Body Mass Index 36.33 12/08/2020 1:52 PM EDT documented in this encounter Progress Notes * Antonella Slaughter MD - 03/02/2023 10:15 AM EST Progress Note - Neurology [facility] [address] [place] [address] NAME: Kallie Anthony Date of : 1955 Date of Visit: 03/02/23 Chief Complaint: f/u foot drop Chief Complaint Patient presents with Return Neuro Subjective: Right foot drop, was improving with PT, was put on hold for Covid Neuro ROS: neg for stroke sx HOME MEDICATIONS : Current Outpatient Medications Medication Sig Dispense Refill Lisinopril-Hydrochlorothiazide 20-12.5 MG per tablet Take 2 Tabs by mouth daily. (Patient not taking: Reported on 01/12/2023) 1 venlafaxine XR (EFFEXOR XR) 150 MG CP24 daily. 1 ALPRAZolam (XANAX) 0.5 MG Tablet Take 0.5 Tablets by mouth at bedtime as needed for Sleep. Carvedilol 6.25 MG Oral Tablet (Coreg) Take 1 Tablet by mouth 2 times a day with morning and evening meals. Estradiol 0.1 MG/24HR Transdermal Patch Weekly (Climara) Place 1 Patch topically on the skin once aweek. (Patient not taking: Reported on 01/12/2023) Vitamin D3 1.25 MG (84583 UT) Oral Tablet Take by mouth. Olmesartan Medoxomil-HCTZ 20-12.5 MG Oral Tablet Take 1 Tablet by mouth in the morning. Vitamin B-12 5000 MCG Oral Tablet Disintegrating Take by mouth. No current facility-administered medications for this visit. Review of patient's allergies indicates: Allergen Reactions Bactrim [Sulfamethoxazole-Trimethoprim] Paxil [Paroxetine Hcl] Bad dreams PHYSICAL EXAMINATION: Vital Signs: BP 128/74 | Pulse 56 | Temp 36 C (96.8 F) (Tympanic) | Resp 18 | Wt 93 kg (205 lb 1.6 oz) | SpO2 99% | BMI 36.33 kg/m | BSA 2.03 m EXAM: Constitutional: appearance normally developed, well nourished and non-obeseHead and Face: normocephalic and atraumatic Cardiovascular: heart sounds are normal. Rhythm is sinus NEUROLOGIC EXAM Higher integrative is obviously intact. Cranial Nerves: CN 2 - no visual defect on confrontation and pupils round, equal, reactive to light CN 3, 4, 6 - extra-ocular movements intact and no nystagmus CN 7 - no facial asymmetry CN 9, 10 - palate symmetric CN 12 - tongue midline Motor: Normal, without pronator drift, except for right EHL 1/5, TA 2/5, evertor 2/5 Coordination: Normal finger to nose and rapid alternating movement of lower extremities Sl cyanosis of right foot. IMPRESSION / PLAN: Right foot drop, marginally improved; EMG/NCV scheduled; AIDE sl off-f/u of this per pcp. documented in this encounter Nursing Notes * Naty Pitts, MED ASSIST - 03/02/2023 9:43 AM EST Chief Complaint Patient presents with Return Neuro documented in this encounter Plan of Treatment Upcoming Encounters Date Type Department Care Team (Late st Contact Info) Description 03/23/2023 12:45 PM EST NeuroDiagnostic Study Neurophysiology, [address] [place] [address] Chu Reed DO [address] [facility] [place] [address] 04/27/2023 10:40 AM EST Office Visit Neurology [facility] [address] [facility] [place] [address] Antonella Slaughter MD [address] [facility] [place] [address] Scheduled Procedures Name Priority Associated Diagnoses Date/Ti [...] foot documented in this encounter Care Teams Pharmacy Salesperson Relationship Specialty Start Date End Date Aguilar Abbasi PA-C [address] [facility] [place] [address] PCP - General Physician Vp Informatics 01/08/21 documented as of this encounter"
--- OUTSIDE RECORDS SUMMARY | 2023-03-20 07:19 | External Medical Summary | Summary of Care ---
Author Name Unknown Organization [facility] Address [address] [place] [place] [facility] [place] [address] Phone [phone] Care Team Providers Care Seam Steamer Name Role Phone Aguilar Abbasi PA-C Primary Care Provider [phone] Reason for Visit * Reason Onset Date Comments Abnormal Lab Results 03/02/2023 Encounter Details Date Type Department Care Team (Late st Contact Info) Description 03/02/2023 Telephone Neurology [facility] [place] [address] [facility] [place] [address] Antonella Slaughter MD [address] [place] [address] Abnormal Lab Results Allergies Active Allergy Reactions Criticality Noted Date [...] week. 0 Active Vitamin D3 1.25 MG (09893 UT) Oral Tablet Take by mouth. 0 [...] 03/23/2023 12:45 PM EST NeuroDiagnostic Study Neurophysiology, [address] [place] [address] Chu Reed DO [address] [facility] [address] [place] [address] 04/27/2023 10:40 AM EST Office Visit Neurology [facility] [place] [address] [facility] [place] [address] Antonella Slaughter MD 200 [facility] [place] [address] Scheduled Procedures Name Priority Associated Diagnoses Date/Ti [...] filedocumented as of this encounter Care Teams Seam Steamer Relationship Specialty Start Date End Date Aguilar Abbasi PA-C [address] [facility] [place] [address] PCP - General Physician Cuff Turner 01/08/21 documented as of this encounter
--- OUTSIDE RECORDS SUMMARY | 2023-03-20 07:19 | External Medical Summary | Summary of Care ---
Author Name Unknown Organization [facility] Address [address] [place] [address] Phone [phone] Care Team Providers Care Manager Diabetes Name Role Phone Aguilar Abbasi PA-C Primary Care Provider [phone] Reason for Visit * Reason Onset Date Comments Appointment 02/28/2023 Encounter Details Date Type Department Care Team (Late st Contact Info) Description 02/28/2023 Telephone Neurology [facility] [place] [address] [facility] [place] [address] Antonella Slaughter MD [address] [facility] [place] [address] Appointment Allergies Active Allergy Reactions Criticality Noted [...] week. 0 Active Vitamin D3 1.25 MG (33346 UT) Oral Tablet Take by mouth. 0 [...] Telephone Encounter - Elaine Herrera OSA - 02/28/2023 3:05 PM EST Pt is scheduled * Telephone Encounter - Antonella Slaughter MD - 02/28/2023 9:14 AM EST I need more info than on EMG done by Dr. Gongora; I'll order another to be done here documented in this encounter Plan of Treatment Upcoming Encounters Date Type Department Care Team (Late st Contact Info) Description 03/02/2023 10:00 AM EST Office Visit [facility]rology [facility] [place] [address] [facility] [place] [address] Antonella Slaughter MD [address] [facility] [place] [address] 03/23/2023 12:45 PM EST NeuroDiagnostic Study Neurophysiology, [place] [address] [place] [address] [place] [address] Chu Reed, DO [address] [facility] [place] [address] Scheduled Procedures Name Priority Associated Diagnoses Date/Ti [...] 2022 01/24/2022, 01/05/2021, 12/06/2019 Mammogram 02/15/2023 02/15/2022, 1112/2020, 01/31/2020, Additional history exists DXA Scan 12/14/2025 [...] foot documented in this encounter Care Teams Manager Diabetes Relationship Specialty Start Date End Date Aguilar Abbasi PA-C [address] [facility] [place] [address] PCP - General Physician Labor Contractor 01/08/21 documented as of this encounter
--- OUTSIDE RECORDS SUMMARY | 2023-03-20 07:19 | External Medical Summary | Summary of Care ---
Author Name Unknown Organization [facility] Address [address] [facility] [place] [address] Phone [phone] Care Team Providers Care Production Counter Name Role Phone Aguilar Abbasi PA-C Primary Care Provider [phone] Encounter Details Date Type Department Care Team (Latest Contact Info) Description 03/06/2023 11:11 AM EST - 03/06/2023 11:59 PM EST Hospital Encounter Radiology, [address] [place] [address] Arrived Discharge Disposition: [...] week. 0 Active Vitamin D3 1.25 MG (40235 UT) Oral Tablet Take by mouth. 0 [...] Info) Description 03/09/2023 12:30 PM EST Appointment Radiology, [place] [address] 03/09/2023 1:00 PM EST [place]ment [place] [address] 03/23/2023 12:45 PM EST NeuroDiagnostic Study Neurophysiology, [place] [address] Chu Reed DO [address] [facility] [place] [address] 04/27/2023 10:40 AM EST Office Visit Neurology [facility] [place] [address] [facility] [place] [facility] [place] [address] Antonella Slaughter MD [address] [facility] [place] [address] Scheduled Procedures Name Priority Associated Diagnoses Date/Ti [...] Name Priority Date/Time Associated Diagnosis Comments MAMMOGRAM SCREENING DORI BILATERAL Routine 03/06/2023 11:33 AM EST Encounter for screening mammogram for malignant neoplasm of breast documented in this encounter Results * (ABNORMAL) MAMMOGRAM SCREENING DORI BILATERAL (03/06/2023 11:33 AM EST) Anatomical Region Laterality Modality Breast Bilateral Mammography Narrative 03/06/2023 7:18 PM EST Result MAMMOGRAM SCREENING DORI BILATERAL History Encounter for screening mammogram for malignant neoplasm of breast Family medical history includes breast cancer in cousin (maternal). Films Compared 02/15/2022 MAMMOGRAM SCREENING DORI BILATERAL, 02/09/2021 MAMMOGRAM SCREENING DORI BILATERAL, 01/31/2020 MAMMOGRAM SCREENING DORI BILATERAL, and 05/23/2018 MAMMOGRAM SCREENING DORI BILATERAL Findings Left The left breast has scattered areas of fibroglandular density. There is no evidence of suspicious masses, calcifications, or other abnormal findings in the left breast. Right The right breast has scattered areas of fibroglandular density. Group of microcalcifications in the inner mid middle. Additional imaging is advised. Impression Group of microcalcifications in the inner mid middle depth right breast. Additional imaging is advised. No mammographic evidence of malignancy in the left breast. BI-RADS Category: 0 - Incomplete: Needs Additional Imaging Evaluation. Recommendation Screening mammogram in 1 year is recommended for the left breast. Callback diagnostic mammogram is recommended for the right breast. Digital [...] to year. This examination was performed at [facility], [address] [place] [address], [place] [address]. Aguilar Abbasi PA-C RAD MAMMOGRAPHY documented in this encounter Visit Diagnoses Diagnosis Encounter for screening mammogram for malignant neoplasm of breast Other screening mammogram documented in this encounter Care Teams Production Counter Relationship Specialty Start Date End Date Aguilar Abbasi PA-C [address] [facility] [place] [phone] PCP - General Physician Health Records Technology Teacher 01/08/21 documented as of this encounter
--- OUTSIDE RECORDS SUMMARY | 2023-03-20 07:19 | External Medical Summary | Summary of Care ---
Author Name Unknown Organization [facility] Address [address] [place] [facility] [place] [address] Phone [phone] Care Team Providers Care Furnace Loader Name Role Phone Aguilar Abbasi PA-C Primary Care Provider [phone] Encounter Details Date Type Department Care Team (Latest Contact Info) Description 03/09/2023 12:13 PM EST - 03/09/2023 11:59 PM EST Hospital Encounter Radiology, [address] [place] [address] Arrived Discharge Disposition: [...] week. 0 Active Vitamin D3 1.25 MG (85876 UT) Oral Tablet Take by mouth. 0 [...] 03/23/2023 12:45 PM EST NeuroDiagnostic Study Neurophysiology, [address] [place] [address] Chu Reed DO [address] [facility] [place] [address] 04/27/2023 10:40 AM EST [facility] [address] [place] [address] Antonella Slaughter MD [address] [place] [address] Scheduled Procedures Name Priority Associated Diagnoses Date/Ti me COLONOSCOPY FLEXIBLE PROXIMA L DIAGNOSTIC Recall Screening for colon cancer Health Maintenance Due Date Last Done Comments Hepatitis C Screening 07/23/1971 DTaP,Tdap,and Td Vaccines (1 - Tdap) 1972 Cologuard 1998 Fecal Occult Blood Test 1998 Sigmoidoscopy 1998 Depression Screening 11/29/2017 11/29/2016 COVID-19 Vaccine ( season) 2022 06/13/2020, 05/16/2020 Mammogram 03/09/2024 03/09/2023, 1207/2022, 02/15/2022, Additional history exists DXA Scan 12/14/2025 [...] of this encounter Visit Diagnoses Diagnosis Inconclusive mammogram documented in this encounter Care Teams Furnace Loader Relationship Specialty Start Date End Date Aguilar Abbasi PA-C [address] [facility] [place] [address] PCP - General Physician Passenger Rate Clerk 01/08/21 documented as of this encounter
--- OUTSIDE RECORDS SUMMARY | 2023-03-20 07:20 | External Medical Summary | Summary of Care ---
Author Name Unknown Organization [facility] Address [address] [place] [facility] [place] [place] [address] Phone [phone] Care Team Providers Care Weight Loss Sales Consultant Name Role Phone Aguilar Abbasi PA-C Primary Care Provider [phone] Encounter Details Date Type Department Care Team (Late st Contact Info) Description 02/14/2023 Telephone Neurology [facility] [place] [address] [place] [address] Antonella Slaughter MD [address] [place] [address] Allergies Active Allergy Reactions Criticality Noted Date [...] week. 0 Active Vitamin D3 1.25 MG (83185 UT) Oral Tablet Take by mouth. 0 [...] Encounter - Kim De Luna LPN - 02/15/2023 12:21 PM EST DIVINA faxed, EMG is in chart under the scans tab. Will have nurse print and give to you. * Telephone Encounter - Antonella Slaughter MD - 02/14/2023 4:07 PM EST Get divina to Aguilar [place]roy I don't see emg/ncv report from Dr. Gongora on chart; Please obtain documented in this encounter Plan of Treatment Upcoming Encounters Date Type Department Care Team (Late st Contact Info) Description 03/02/2023 10:00 AM EST Office Visit Neurology [place] Gut[place] [address] [facility] [place] [address] Antonella Slaughter MD [address] [facility] [place] [address] Scheduled Procedures Name Priority Associated Diagnoses Date/Ti [...] filedocumented as of this encounter Care Teams Weight Loss Sales Consultant Relationship Specialty Start Date End Date Aguilar Abbasi PA-C [facility] [place] [phone] PCP - General Physician Security Screener 01/08/21 documented as of this encounter
--- OUTSIDE RECORDS SUMMARY | 2023-03-20 07:20 | External Medical Summary | Summary of Care ---
Author Name Unknown Organization [facility] Address [address] [facility] [place] [address] Phone [phone] Care Team Providers Care Supervisor Food Checkers And Cashiers Name Role Phone Aguilar Abbasi PA-C Primary Care Provider [phone] Encounter Details Date Type Department Care Team (Late st Contact Info) Description 02/14/2023 Telephone Neurology [facility] [place]admin[place] [address] [place] [address] Antonella Slaughter MD [address] [place] [address] Allergies Active Allergy Reactions Criticality Noted Date [...] week. 0 Active Vitamin D3 1.25 MG (38491 UT) Oral Tablet Take by mouth. 0 [...] 4:07 PM EST Get divina to Aguilar Abbasi I don't see emg/ncv report from Dr. Gongora on chart; Please obtain documented in this encounter Plan of Treatment Upcoming Encounters Date Type Department Care Team (Late st Contact Info) Description 03/02/2023 10:00 AM EST Office Visit Neurology [facility] [address] [place] [address] Antonella Slaughter MD [address] [place] [address] Scheduled Procedures Name Priority Associated Diagnoses Date/Ti [...] filedocumented as of this encounter Care Teams Supervisor Food Checkers And Cashiers Relationship Specialty Start Date End Date Aguilar Abbasi PA-C [address] [facility] [place] [address] PCP - General Physician Shiftman 01/08/21 documented as of this encounter
--- OUTSIDE RECORDS SUMMARY | 2023-03-20 07:20 | External Medical Summary | Summary of Care ---
Author Name Unknown Organization [facility] Address [address] [place] [address] Phone [phone] Care Team Providers Care Milk Treater Name Role Phone Aguilar Abbasi PA-C Primary Care Provider [phone] Reason for Visit * Reason Comments NEW PATIENT * Evaluate & Treat - Unlimited Visits (Within 10 days (routine)) - Authorized Specialty Diagnoses / Procedures Referred By Inga denny Referred To Contact Neurology Diagnoses Foot drop, right foot Boop, Aguilar Silva PA-C [address] [place] [address] Referral ID Status Reason Start Date Expiration Date Visits Requested Visits Authorized [id number] Authorized Specialty Services Required 01/06/2023 999 [id number] Encounter Details Date Type Department Care Team (Late st Contact Info) Description 01/12/2023 3:00 PM EDT Office Visit [facility] [address] [facility] [place] [address] Leona Chawla MD [address] [place] [place] [address] Foot drop, right*; Mononeuropathy; Obesity (BMI 30-39.9); Abnormal reflex; History of obesity Allergies Active Allergy Reactions Criticality Noted Date [...] week. 0 Active Vitamin D3 1.25 MG (22244 UT) Oral Tablet Take by mouth. 0 [...] Sign Reading Time Taken Comments Blood Pressure 138/80 01/12/2023 3:11 PM EDT Pulse 62 01/12/2023 3:11 PM EDT Temperature 36.4 C (97.5 F) 01/12/2023 3:11 PM ED T Respiratory Rate 18 01/12/2023 3:11 PM EDT Oxygen Saturation 96% 01/12/2023 3:11 PM EDT Inhaled Oxygen Concentration - - Weight 92.5 kg (204 lb) 01/12/2023 3:11 PM EDT Height - - Body Mass Index 36.14 12/08/2020 1:52 PM EDT documented in this encounter Progress Notes * Leona Chawla MD - 01/12/2023 3:20 PM EDT HISTORY AND PHYSICAL EXAMINATION - Neurology [address] [address] NAME: Kallie Anthony Date of : 1955 Date of Visit: 01/12/23 Chief Complaint: Chief Complaint Patient presents with NEW PATIENT HPI: Kallie Anthony is a 67 year old female presenting with foot drop. Location is in the right foot. Timing is ongoing. There is no accompanying pain or paresthesia. There is no accompanying perineal difficulty. Duration is since November 2022. She noticed this when she fell in her garden but it is not clear whether she fell and injured herself or develop an acute footdrop and caught her toe. She believes the latter is more likely. Of a possible note is that she had lumbar surgery in 1990 which relieved her footdrop at the time. She is had no intermittent symptoms. HOME MEDICATIONS : Current Outpatient Medications Medication Sig Dispense Refill venlafaxine XR (EFFEXOR XR) 150 MG CP24 1 ALPRAZolam (XANAX) 0.5 MG Tablet Take 0.5 Tablets by mouth at bedtime as needed for Sleep. Carvedilol 6.25 MG Oral Tablet (Coreg) Take 1 Tablet by mouth 2 times a day with morning and evening meals. Vitamin D3 1.25 MG (06919 UT) Oral Tablet Take by mouth. Olmesartan Medoxomil-HCTZ 20-12.5 MG Oral Tablet Take 1 Tablet by mouth in the morning. Vitamin B-12 5000 MCG Oral Tablet Disintegrating Take by mouth. Lisinopril-Hydrochlorothiazide 20-12.5 MG per tablet Take 2 Tabs by mouth daily. (Patient not taking: Reported on 01/12/2023) 1 Estradiol 0.1 MG/24HR Transdermal Patch Weekly (Climara) Place 1 Patch topically on the skin once aweek. (Patient not taking: Reported on 01/12/2023) No current facility-administered medications for this visit. Review of patient's allergies indicates: Allergen Reactions Bactrim [Sulfamethoxazole-Trimethoprim] Paxil [Paroxetine Hcl] Bad dreams Past Medical History: Diagnosis Date Anxiety Hypertension Past Surgical History: Procedure Laterality Date COLONOSCOPY, DIAGNOSTIC (RECTUM) N/A 08/12/2020 scattered recto-sigmoid diverticulosis/internal hemorrhoids/recall 10 years/COLONOSCOPY FLEXIBLE PROXIMAL DIAGNOSTIC performed by Aurora Jorge MD at ENDOSCOPY [facility] DILATION AND CURETTAGE (D&C) 04/03/2009 INFORMATION 04/03/1990 back surgery LIGATE/CUT OVIDUCT(S) 04/03/1991 ND SPINE/LUMBAR DISK SURGERY 1990 TOTAL ABD HYSTERECTOMY W/WO REMOVAL OF TUBE(S) 04/03/2010 BSO Family History Problem Relation Age of Onset Hypertension Mother Diabetes Mother Other (multiple back surgeries) Mother Other (PR-) Father Diabetes Sister Hypertension Brother Other (high cholesterol) Brother Other ("black lung") Grandfather (Maternal) Breast Cancer Cousin (Maternal) Social History Socioeconomic History Marital status: Spouse [...] on file Housing Stability: Not on file ROS: Review of Systems Constitutional: Negative. HENT: Negative. Eyes: Negative. Respiratory: Negative. Cardiovascular: Negative. Gastrointestinal: Negative. Endocrine: Negative. Genitourinary: Negative. Musculoskeletal: Negative. Allergic/Immunologic: Negative. Neurological: Negative. Hematological: Negative. Psychiatric/Behavioral: Negative. All other systems reviewed and are negative. PHYSICAL EXAMINATION: Vital Signs: BP 138/80 | Pulse 62 | Temp 36.4 C (97.5 F) (Tympanic) | Resp 18 | Wt 92.5 kg (204 lb) | SpO2 96% | BMI 36.14 kg/m | BSA 2.03 m EXAM: Constitutional: appearance normally developed, with no deformities Heart sounds are normal Examination of the peripheral vascular system by observation does not reveal varicosity or edema. Palpation reveals normal pulses and temperature Carotid arteries reveal no bruit. NEUROLOGIC EXAMINATION: Appearance: no acute distress Opthalmoscopic: disc flat, normal fundus The patient has obviously intact higher integrative functioning to orientation, language, fund of knowledge, attention to the examiner, and memory Speech: no dysarthria Cranial Nerves: CN 2 - no visual defect on confrontation. CN 3, 4, 6 - extra-ocular movements intact and no nystagmus; with round pupils appropriately reactive to light and accomodation CN 5 - facial sensation intact CN 7 - no facial asymmetry CN 8 - intact hearing CN 9, 10 - palate symmetric CN 11 - good shoulder shrug CN 12 - tongue midline Gait and station: careful Coordination: normal finger to nose testing and rapid alternating movements of the lower extremities. No tremor is seen. Sensory: intact to light touch and pain Muscle Tone: normal; no wasting is seen. Evertors 5/5 b/l Muscle exam: Arm Right Left Leg Right Left Deltoid 5/5 5/5 Iliopsoas 5/5 5/5 Biceps 5/5 5/5 Quads 5/5 5/5 Triceps 5/5 5/5 Hamstrings 5/5 5/5 Wrist Extension 5/5 5/5 Ankle Dorsi Flexion 2/5 5/5 Wrist Flexion 5/5 5/5 Ankle Plantar Flexion 5/5 5/5 Interossei 5/5 5/5 Toe Extension 0/5 5/5 APBs 5/5 5/5 Invertor 5/5 5/5 Reflexes: Biceps Patellar Achilles Plantars Right tr tr tr Flexor Left tr tr tr Flexor DATA AVAILABLE:Review MRI lumbar, and emg IMPRESSION / PLAN: this patient clearly has a right foot drop. 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 I am going to check the recent MRI done and EMG/NCV done by Dr. Gongora. I have ordered blood studies for mononeuropathy as well as a likely peripheral neuropathy based on the areflexia. The patient was greatly concerned this might represent a lumbar condition requiring surgery. I havereassured her that this was not likely. I will re-examine her in about 6 weeks. Thank you very much for the opportunity of seeing this patient. If you have any questions or comments, please feel free to call. She is going to continue physical therapy given she describes estim Leona Chawla MD documented in this encounter Miscellaneous Notes * Addendum Note - Leona hCawla MD - 02/15/2023 3:50 PM ESTAddended by: LEONA CHAWLA on: 02/15/2023 03:50 PM Modules accepted: Orders documented in this encounter Plan of Treatment Upcoming Encounters Date Type Department Care Team (Late st Contact Info) Description 03/02/2023 10:00 AM EST Office Visit Neurology [facility] [address] [facility] [place] [address] Leona Chawla MD [address] [facility] [place] [address] Scheduled Procedures Name Priority Associated Diagnoses Date/Ti [...] Procedure Name Priority Date/Time Associated Diagnosis Comments LYME DISEASE ANTIBODY SCREEN Routine 01/12/2023 3:54 PM EDT Mononeuropathy ANTINUCLEAR ANTIBODY (AIDE) SCREEN, VINCENT Routine 01/12/2023 3:54 PM EDT Mononeuropathy DIFFERENTIAL, AUTOMATED Routine 01/12/2023 3:54 PM EDT Mononeuropathy CENTROMERE ANTIBODY Routine 01/12/2023 3 :54 PM EDT Mononeuropathy ANTINUCLEAR ANTIBODY (AIDE) EIA SCREEN WITH REFLEX AB QUANT Routine 01/12/2023 3:54 PM EDT Mononeuropathy LYME DISEASE ANTIBODY SCREEN WITH REFLEX TO CONFIRMATION Routine 01/12/2023 3:54 PM EDT Mononeuropathy BRANDT-1 ANTIBODY Routine 01/12/2023 3:54 PM EDT Mononeuropathy HEMOGLOBIN A1C Routine 01/12/2023 3:54 PM EDT Mononeuropathy Obesity (BMI 30-39.9) History of obesity COMPREHENSIVE METABOLIC PANEL Routine 01/12/2023 3:54 PM EDT Mononeuropathy SSA/RO AND SSB/LA ANTIBODIES Routine 01/12/2023 3:54 PM EDT Mononeuropathy SCL 70 ANTIBODY Routine 01/12/2023 3:54 PM EDT Mononeuropathy CONTENT ENGINEER AND SM ANTIBODIES Routine 01/12/2023 3:54 PM EDT Mononeuropathy CBC Routine 01/12/2023 3:54 PM EDT Mononeuropathy ERYTHROCYTE SEDIMENTATION RATE (ESR) Routine 01/12/2023 3:54 PM EDT Mononeuropathy CBC Routine 01/12/2023 3:54 PM EDT Mononeuropathy TSH Routine 01/12/2023 3:54 PM EDT Mononeuropathy Abnormal reflex documented in this encounter Results * (ABNORMAL) CENTROMERE ANTIBODY (01/12/2023 3:54 PM EDT) Centromere Antibody Interpretation Positive( A) Negative 01/15/2023 11:50 AM EDT [facility] Centromere Antibody Value 15.0 <7 U/mL 01/15/2023 11:50 AM EDT [facility] Blood Venous blood specimen / Unknown Venipuncture / Unknown 01/12/2023 3:54 PM EDT 01/12/2023 3:54 PM EDT Leona Chawla MD LAB BLOOD ORDER [place] Performing Organization Address City/State/[facility] de Phone Number LABORATORY [facility] [address] [place] [address] * SCL 70 ANTIBODY (01/12/2023 3:54 PM EDT) Scl 70 Antibody Interpretation Negative Negative 01/15/2023 11:50 AM EDT [facility] Scl 70 Antibody Value <0.6 <7 U/mL 01/15/2023 11:50 AM EDT [facility] Blood Venous blood specimen / Unknown Venipuncture / Unknown 01/12/2023 3:54 PM EDT 01/12/2023 3:54 PM EDT Leona Chawla MD LAB BLOOD ORDER [place] [facility] [address] [place] [address] * CONTENT ENGINEER AND SM ANTIBODIES (01/12/2023 3:54 PM EDT) CONTENT ENGINEER Antibody Interpretation Negative Negative 01/15/2023 11:50 AM EDT [facility] CONTENT ENGINEER Antibody Value 0.9 <5 U/mL 2022 11:50 AM EDT [facility] Sm Antibody Interpretation Negative Negative 01/15/2023 11:50 AM EDT [facility] Sm Antibody Value <0.7 <7 U/mL 023 11:50 AM EDT [facility] Blood Venous blood specimen / Unknown Venipuncture / Unknown 01/12/2023 3:54 PM EDT 01/12/2023 3:54 PM EDT Leona Chawla MD LAB BLOOD ORDER [place] Performing Organization Address City/[facility]/ZIP Co de Phone Number [facility] [address] [place] [address] * SSA/RO AND SSB/LA ANTIBODIES (01/12/2023 3:54 PM EDT) SSA/Ro Antibody Interpretation Negative Negative 01/15/2023 11:50 AM EDT [facility] SSA/Ro Antibody Value <0.4 <7 U/mL 01/15/2023 11:50 AM EDT [facility] SSB/La Antibody Interpretation Negative Negative 01/15/2023 11:50 AM EDT [facility] SSB/La Antibody Value <0.4 <7 U/mL 01/15/2023 11:50 AM EDT [facility] Blood Venous blood specimen / Unknown Venipuncture / Unknown 01/12/2023 3:54 PM EDT 01/12/2023 3:54 PM EDT Leona Chawla MD LAB BLOOD ORDER [place] [facility] [address] [place] [address] * BRANDT-1 ANTIBODY (01/12/2023 3:54 PM EDT) [facility] Brandt-1 Antibody Interpretation Negative Negative 01/15/2023 11:50 AM EDT LABORATORY [facility] Brandt-1 Antibody Value <0.3 <7 U/mL 01/15/2023 11:50 AM EDT LABORATORY [facility] Blood Venous blood specimen / Unknown Venipuncture / Unknown 01/12/2023 3:54 PM EDT 01/12/2023 3:54 PM EDT Leona Chawla MD LAB BLOOD ORDER [place] LAB[facility]AT[facility] [address] [place] [address] * DIFFERENTIAL, AUTOMATED (01/12/2023 3:54 PM EDT) [facility] WBC 6.40 4.00 - 10.80 K/uL 01/12/2023 11:45 PM EDT [facility] Neutrophils % 50.0 40.0 - 75.0 % 01/12/2023 11:45 PM EDT [facility] Lymphocytes % 36.3 18.0 - 42.0 % 01/12/2023 11:45 PM EDT [facility] Monocytes % 10.3 1.0 - 11.0 % 01/12/2023 11:45 PM EDT [facility] Eosinophils % 2.8 0.0 - 6.0 % 01/12/2023 11:45 PM EDT [facility] Basophils % 0.3 0.0 - 2.0 % 01/12/2023 11:45 PM EDT [facility] Immature Granulocytes % 0.3 0.0 - 2.0 % 01/12/2023 11:45 PM EDT [facility] Absolute Neutrophils 3.20 1.80 - 7.70 K/uL 01/12/2023 11:45 PM EDT [facility] Absolute Lymphocytes 2.32 1.00 - 4.80 K/ul 01/12/2023 11:45 PM EDT [facility] Absolute Monocytes 0.66 0.00 - 1.10 K/uL 01/12/2023 11:45 PM EDT [facility] Absolute Eosinophils 0.18 0.00 - 0.70 K/uL 01/12/2023 11:45 PM EDT [facility] Absolute Basophils 0.02 0.00 - 0.20 K/uL 01/12/2023 11:45 PM EDT [facility] Absolute Immature Granulocytes 0.02 0.00 - 0.20 K/uL 01/12/2023 11:45 PM EDT [facility] Blood Venous blood specimen / Unknown Venipuncture / Unknown 01/12/2023 3:54 PM EDT 01/12/2023 3:54 PM EDT Leona Chawla MD LAB BLOOD ORDER [place] [facility] [address] [place] [address] * CBC (01/12/2023 3:54 PM EDT) WBC 6.40 4.00 - 10.80 K/uL 01/12/2023 11:45 PM EDT [facility] RBC 4.32 3.85 - 5.15 M/uL 01/12/2023 11:45 PM EDT [facility] HGB 15.0 12.0 - 15.3 g/dL 01/12/2023 11:45 PM EDT [facility] HCT 44.8 36.0 - 45.2 % 01/12/2023 11:45 PM EDT [facility] MCV 103.7 81.5 - 97.5 fL 01/12/2023 11:45 PM EDT [facility] MCH 34.7 27.0 - 34.0 pg 01/12/2023 11:45 PM EDT [facility] MCHC 33.5 32.0 - 36.0 g/dL 01/12/2023 11:45 PM EDT [facility] RDW 11.9 11.5 - 15.5 % 01/12/2023 11:45 PM EDT [facility] PLT 268 140 - 400 K/uL 01/12/2023 11:45 PM EDT [facility] MPV 10.2 6.6 - 11.1 fL 01/12/2023 11:45 PM EDT LABORATORY [facility] nRBCs 0 <=0 /100 WBCs 01/12/2023 11:45 PM EDT LABORATORY [facility] Blood Venous blood specimen / Unknown Venipuncture / Unknown 01/12/2023 3:54 PM EDT 01/12/2023 3:54 PM EDT Leona Chawla MD LAB BLOOD ORDER [place] LAB[facility]AT[facility] [address] [place] [address] * (ABNORMAL) ANTINUCLEAR ANTIBODY (AIDE) SCREEN, VINCENT (01/12/2023 3:54 PM EDT) AIDE Screen Positive(A) Negative 01/13/2023 12:33 PM EDT LABORATORY [facility] dsDNA Antibody Interpretation Negative Negative 01/13/2023 12:33 PM EDT LABORATORY [facility] dsDNA Antibody Value 0.9 <20 IU/mL 01/13/2023 12:33 PM EDT LABORATORY [facility] ARMOND Antibodies Screen Interpretation Positive(A) Negative 01/13/2023 12:33 PM EDT LABORATORY [facility] ARMOND Antibodies Screen Value 1.5 <0.7 Ratio 01/13/2023 12:33 PM EDT LABORATORY [facility] Comment: Screening is based on detection of the following antibodies: dsDNA, U1-CONTENT ENGINEER (RNP70, A, C), SS-A/Ro, SS-B / La, Brandt-1, Scl-70, Centromere B proteins and Sm proteins. In conjunction with clinical findings, this can aid in the diagnosis of systemic lupus erythematosous (SLE), mixed connective tissue disease (MCTD), Sjogren's syndrome, scleroderma and polymyositis/dermatomyositis. However, a negative result does not rule out systemic rheumatic or other autoimmune disease. If clinically suspected, further evaluation and testing may be necessary. Please consult with Rheumatology Department. Methodology: Fluorescent Enzyme Immunoassay. Blood Venous blood specimen / Unknown Venipuncture / Unknown 01/12/2023 3:54 PM EDT 01/12/2023 3:54 PM EDT Leona Chawla MD LAB BLOOD ORDER [place] [facility] [address] [place] [address] * LYME DISEASE ANTIBODY SCREEN (01/12/2023 3:54 PM EDT) [facility] Lyme Disease Antibody Screen Negative Negative 01/13/2023 11:43 AM EDT [facility] Blood Venous blood specimen / Unknown Venipuncture / Unknown 01/12/2023 3:54 PM EDT 01/12/2023 3:54 PM EDT Leona Chawla MD LAB BLOOD ORDER [place] Performing Organization Address City/[facility] Co de Phone Number [facility] [address] [place] [address] * COMPREHENSIVE METABOLIC PANEL (01/12/2023 3:54 PM EDT) [facility] BUN 13 6 - 20 mg/dL 01/12/2023 10:12 PM EDT [facility] Creatinine 0.7 0.5 - 1.0 mg/dL 01/12/2023 10:12 PM EDT [facility] Estimated Glomerular Filtration Rate 89 >=60 mL/min 01/12/2023 10:12 PM EDT [facility] Comment:eGFR is calculated b ased on the CKD-EPI 2020 equation Sodium 140 135 - 146 mmol/L 01/12/2023 10:12 PM EDT [facility] Potassium 4.1 3.5 - 5.1 mmol/L 01/12/2023 10:12 PM EDT [facility] Chloride 101 98 - 107 mmol/L 01/12/2023 10:12 PM EDT [facility] CO2 25 22 - 32 mmol/L 01/12/2023 10:12 PM EDT [facility] Anion Gap 14 7 - 15 mmol/L 01/12/2023 10:12 PM EDT [facility] Glucose 101 70 - 120 mg/dL 01/12/2023 10:12 PM EDT [facility] Albumin 4.5 3.8 - 5.0 g/dL 01/12/2023 10:12 PM EDT [facility] AST 21 10 - 35 U/L 01/12/2023 10:12 PM EDT [facility] Alkaline Phosphatase 78 35 - 130 U/L 01/12/2023 10:12 PM EDT [facility] Bilirubin, Total 0.5 <=1.2 mg/dL 01/12/2023 10:12 PM EDT [facility] Calcium 10.0 8.4 - 10.2 mg/dL 01/12/2023 10:12 PM EDT [facility] Protein 6.9 6.0 - 8.3 g/dL 01/12/2023 10:12 PM EDT [facility] ALT 26 10 - 35 U/L 01/12/2023 10:12 PM EDT [facility] Blood Venous blood specimen / Unknown Venipuncture / Unknown 01/12/2023 3:54 PM EDT 01/12/2023 3:54 PM EDT Leona Chawla MD LAB BLOOD ORDER [place] LAB[facility] [address] [place] [address] * TSH (01/12/2023 3:54 PM EDT) TSH 3.48 0.27 - 4.20 uIU/mL 01/12/2023 10:53 PM EDT [facility] Blood Venous blood specimen / Unknown Venipuncture / Unknown 01/12/2023 3:54 PM EDT 01/12/2023 3:54 PM EDT Leona Chawla MD LAB BLOOD ORDER [place] LAB[facility]AT[facility] [address] [place] [address] * ERYTHROCYTE SEDIMENTATION RATE (ESR) (01/12/2023 3:54 PM EDT) ESR 18 <30 mm/hour 01/12/2023 10:02 PM EDT [facility] Blood Venous blood specimen / Unknown Venipuncture / Unknown 01/12/2023 3:54 PM EDT 01/12/2023 3:54 PM EDT Leona Chawla MD LAB BLOOD ORDER [place] Performing Organization Address [facility] de Phone Number LABORATORY [facility] [address] [place] [address] * HEMOGLOBIN A1C (01/12/2023 3:54 PM EDT) Hemoglobin A1C 5.5 4.0 - 5.6 % 01/13/2023 1:07 AM EDT [facility] Comment:The use of HbA1c to monitor glycemic status is based on normal hemoglobin and HbA composition. This test should not be used in patients with abnormal hemoglobin that affects the half life of the red blood cell or the in vivo glycation rates. Estimated Average Glucose 111 <126 mg/dL 01/13/2023 1:07 AM EDT LABORATORY [facility] Blood Venous blood specimen / Unknown Venipuncture / Unknown 01/12/2023 3:54 PM EDT 01/12/2023 3:54 PM EDT Leona Chawla MD LAB BLOOD ORDER [place] Performing Organization Address [facility] de Phone Number LABORATORY [facility] [address] [place] [address] documented in this encounter Visit Diagnoses Diagnosis Foot drop, right- Primary Other acquired deformity of ankle and foot Mononeuropathy Mononeuritis of unspecified site Obesity (BMI 30-39.9) Obesity, unspecified Abnormal reflex History of obesity Personal history of other specified diseases documented in this encounter Care Teams Milk Treater Relationship Specialty Start Date End Date Aguilar Abbasi PA-C [address] [facility] [place] [id number] PCP - General Physician Lactation Nurse 01/08/21 documented as of this encounter
[2023-03-20] MEDS ORDERED: ROCURONIUM BROMIDE 10 MG/ML 5 ML VIAL IV ONE (07:48)
[2023-03-20] MEDS ORDERED: PHENYLEPHRINE HCL 10 MG/ML VIAL ONE (07:59)
[2023-03-20 08:11] LABS: Basophils # (auto) 0.02 K/uL (0.00-0.20); Basophils % (auto) 0.4 %; Eosinophils # (auto) 0.13 K/uL (0.00-0.50); Eosinophils % (auto) 2.5 %; Hemoglobin 13.5 g/dl (12.0-16.0); Immature Granulocytes # (auto) 0.01 K/uL (0.01-0.20); Immature Granulocytes % (auto) 0.2 %; Lymphocytes # (auto) 1.79 K/uL (1.20-3.40); Lymphocytes % (auto) 34.8 %; Mean Corpuscular Hemoglobin 34.3 pg (25.0-34.0); Mean Corpuscular Hgb Conc 34.6 g/dL (32.0-36.0); Mean Platelet Volume 9.6 fL (9.4-12.4); Monocytes # (auto) 0.53 K/uL (0.11-0.59); Monocytes % (auto) 10.3 %; Neutrophils # (auto) 2.67 K/uL (1.40-6.50); Neutrophils % (auto) 51.8 %; Platelet Count 212 K/uL (130-400); RDW Coefficient of Variation 11.9 % (11.5-14.5); RDW Standard Deviation 43.2 fL (36.4-46.3); Red Blood Count 3.94 M/uL (4.20-5.40); White Blood Count 5.15 K/ul (4.8-10.8)
[2023-03-20 08:26] LABS: BUN Creatinine Ratio 24.6 (10-20); Calcium 9.5 mg/dl (8.6-10.3); Est GFR (African American) 109.6 ml/min; Est GFR (Non-African American) 94.6 ml/min; Potassium 3.7 mmol/L (3.5-5.1)
[2023-03-20] MEDS ORDERED: fentaNYL citrate PF 100 MCG/2 ML VIAL IV PRN (08:51)
[2023-03-20] MEDS ORDERED: ONDANSETRON INJ 2 MG/ML 2 ML VIAL IV PRN ×2 (08:51→13:42)
[2023-03-20] MEDS ORDERED: ATROPINE SULFATE 0.1 MG/ML 10ML SYR IV PRN (08:51)
[2023-03-20] MEDS ORDERED: ePHEDrine sulfate 50 MG/ML AMP IV PRN (08:51)
--- NOTE | 2023-03-20 09:28 | History & Physical Bridge Note ---
Date of Service March 20, 2023 History & Physical Bridge Note I have examined the patient, reviewed the History & Physical and in the interval since the performance of the History & Physical I have noted the following changes of clinical significance: no changes noted
--- NOTE | 2023-03-20 12:42 | Operative Report ---
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 Post-Op Diagnosis: Same I identified the patient and participated in the time-out.: Yes Procedure Operation Date: 03/20/23 09:10 Actual Procedures p Left Reverse Total Shoulder Arthroplasty, Biceps Tenodesis(Left) - Amor Santos MD Surgeon Amor Santos MD Sales Specialist Nir WRIGHT Estimated Blood Loss 75 Findings Consistent with Post-Op Diagnosis Specimens humeral head cut Drains 2 Hemovac Anesthesia Type General Regional Complications none Disposition Accompanied Patient To Recovery: No Disposition: Recovery Room Indications 67-year-old female with chronic bilateral shoulder pain with left shoulder MRI demonstrating grade 4 osteoarthritis glenohumeral joint far medial subcoracoid loose body chronic synovitis biceps tenosynovitis tendinopathy with marked supraspinatus tendinopathy partial tearing and intratendinous tendinosis and interstitial tearing. No full-thickness rotator cuff tear Description of Procedure the patient was taken to the operating room and anesthetized under regional block and general anesthetic. The patient was positioned on the operating table in a 30 beach chair position with a towel roll under the medial border of the Left scapula. The arm was draped free to be able to manipulate the shoulder as needed. The left upper extremity was prepped and draped in usual sterile fashion. Exam demonstrated flexible shoulder with ligamentous laxity [id number] crepitation full range of motion. An anterior deltopectoral approach was performed. A longitudinal incision was made in the deltopectoral interval. The skin was incised sharply. Subcutaneous flaps were elevated off the fascia. The cephalic vein was dissected out and retracted lateral with the deltoid. The clavipectoral fascia was divided at the lateral margin of the conjoined tendon and extended up to the CA ligament. The following findings were noted: Rotator cuff supraspinatus had tendinopathy but was intact from the external view. The biceps had a large fluid collection around the biceps tendon. There was chronic bursitis. . The upper centimeter of the pectoralis was released for inferior exposure. A self-retaining retractor was placed. the biceps tendon was tenodesed to the pectoralis tendon with #2 FiberWire. The proximal biceps was resected. The subscapular muscle fibers were split longitudinally at the level of the circumflex vessels. The circumflex vessels were identified and tied off with silk ties and divided laterally. A Kitner elevator was used to free up the inferior fibers of the subscapularis off of the capsule. The axillary nerve was identified with a tug test and protected with a blunt Annamarie retractor between the nerve and the capsule. The subscapularis tendon was then taken down off of the lesser tuberosity subperiosteally, a Vicryl traction suture was placed and a subperiosteal dissection was performed along the neck of the humerus as the arm was gradually externally rotated exposing the humeral head. The humeral head findings demonstrated Completely eburnated bone with concentric type wear with inferior humeral osteophytes from anterior to posterior. retractors were readjusted and the inferior osteophytes were all resected using an artist chisel. A Byrne elevator was used to assist in releasing the capsule of the neck of the humerus. The capsule was divided with Tyler scissors down to the glenoid released off the anterior glenoid and the rotator interval was released to meet the capsular release and a 360 release of the subscapularis was accomplished. A Fukuda retractor was placed into the joint retracting the humeral head posterior. Glenoid findings demonstrated Completely eburnated bone no c artilage remaining with type A wear pattern. The labrum and biceps tendon was resected. an anterior-inferior and posterior inferior capsular release were performed with electrocautery and a Byrne elevator on bone with the axillary nerve protected inferiorly by the retractor. Attention was then taken to the humeral preparation. The cutting guide was placed into the humeral head. It was positioned at 20 of retroversion. Oscillating saw was used to resect the humeral head giving the cut above the level of the posterior rotator cuff insertion site. The humerus was then prepared for the stem. first I released the supraspinatus tendon tissue leaving the infraspinatus and teres minor intact and debriding the undersurface of the tendon with tendinopathy back to better appearing tendon tissue. I used the ascend flex stem from [employer]. The sizing broaches were used followed by trial broaches up to a size 4B which had the appropriate fit and fill. The appropriate sized cut protector was placed. The humerus was then retracted posterior to the glenoid. The glenoid was sized for a 25mm baseplate The guide for the baseplate was positioned in a 10 inferior tilt and the central drill hole was made. The reamer for the 25 baseplate was used. The central drill was widened for the peg. The aequalis 25 mm hydroxyapatite-coated standard post baseplate was impacted into position. The base plate was transfixed with superior and inferior locking screws and anterior and posterior compression screws with stable fixation. The fan reamer was used for the 36 millimeter glenoid sphere. After irrigation the 36 mm glenoid sphere was impacted onto the baseplate and the security screw was tightened. Attention was taken back to the humerus. The cut protector was removed and the +0 high offset humeral tray trial was assembled to the trial stem rotated appropriately to get bony coverage and then screwed in position. A trial reduction was performed. even with a +9 insert we had some slight shock so I went to the 6 mm high offset tray and +6 insert gave stable shoulder with good stability and no shuck. The trials were removed. 3 drill holes are made into the harder bone in the bicipital groove area and 3 #5 FiberWire sutures were placed transosseously. The canal was irrigated with antibiotic solution with saline solution. The final component was assembled. The final component was ascend Flex 4B standard stem assembled 2+6 high offset tray with a +6,30 mm reversed polyethylene insert This was then impacted into the humerus with a tight press-fit. It was reduced to the glenoid sphere. Stability was verified. Subscapularis was repaired with the #5 FiberWire sutures using Rickey-Neville suture technique. Lateral row soft tissue repair was performed with #2 Fi berWire [id number] sutures. The supraspinatus was sutured to the infraspinatus for additional strength. The pectoralis was repaired with #2 FiberWire [id number] sutures reinforcing the biceps tendon tenodesis. The arm was taken through a range of motion which demonstrated No tension on any repairs through 160 degrees of forward flexion 100 degrees abduction and 80 degrees of external rotation. The implant was stable through the range of motion tested. The wound was copiously irrigated Using Xperience.. 2 Hemovac drains were placed. The deltopectoral interval was closed with [id number] #1 Vicryl sutures. The subcutaneous tissues were closed with 2-0 Vicryl sutures. The skin was closed with Omar. Sterile dressings were applied and a shoulder immobilizer Nir WRIGHT, My physician commercial assistant acted as physical therapy assistant throughout the procedure .He performed functions including patient positioning, arm positioning, prepping and draping, soft tissue retraction, instrument management, suture management and performed the subcutaneous and skin closure and will participate in the postoperative care of the patient. I attest to the content of the Intraoperative Record and any orders documented therein. Any exceptions are noted below.
--- NOTE | 2023-03-20 13:03 | XRay Report ---
XR shoulder LT min 2V routine CLINICAL HISTORY: Post shoulder surgery COMPARISON: None FINDINGS: Alignment of the reverse total left shoulder arthroplasty is anatomic. There is no peripro sthetic fracture or unexpected radiopaque foreign body. Skin monty and surgical drains are in place . Radiodensity projects over the left scapular body. This may reflect a calcific density within the s ubcoracoid bursa. IMPRESSION: Expected findings following total left shoulder arthroplasty. ACT 112: Negative or not required by law. Electronically signed by: Derick Lerma M.D. 03/20/2023 1:02 PM
[2023-03-20] MEDS ORDERED: NALOXONE HCL 0.4 MG/1 ML VIAL/CARP IV PRN (13:42)
[2023-03-20] MEDS ORDERED: ALPRAZolam 0.25 MG TABLET PO PRN (13:42)
[2023-03-20] MEDS ORDERED: bisacodyL 10 MG SUPP PR PRN (13:42)
[2023-03-20] MEDS ORDERED: oxyCODONE HCL IR 5 MG TAB (IMMEDIATE RELEASE) PO PRN (13:42)
[2023-03-20] MEDS ORDERED: HYDROmorphone INJ 0.5 MG/0.5 ML SYR IV PRN (13:42)
[2023-03-20] MEDS ORDERED: METOCLOPRAMIDE HCL INJ 5 MG/ML 2 ML VIAL IV PRN (13:42)
[2023-03-20] MEDS ORDERED: MAGNESIUM HYDROXIDE SUSP 30 ML UDC PO PRN (13:42)
[2023-03-20] MEDS: SODIUM CHLORIDE 0.9% 1,000 ML IV SCH ×2 (13:57→22:38)
--- NOTE | 2023-03-20 15:13 | Hospitalist Consultation ---
Date of Consultation March 20, 2023 Assessment & Plan (1) Primary osteoarthritis, left shoulder: - S/p Left Reverse Total Shoulder Arthroplasty with Dr. Santos -Pain control and DVT proh per Primary Team AM CBC and BMP (2) Hypertension: -Continue home Olmesartan and Coreg -Hold HCTZ until tolerating PO intake well (3) Anxiety: -Continue home Venlafaxine and prn Xanax (4) Foot drop: -chronic Continue outpatient neurology follow up and physical therapy (5) Fall: Recent fall appears mechanical in nature, no further workup required (6) Right foot injury: Management per orthopedics - no XRs available to review but reportedly has a fracture in her foot Management per orthopedics with boot Plan Dispo: continued inpatient stay, medically stable Thank you for allowing us to participate in the care of this patient, please reach out with any questions or concerns Supervising Physician Co-Signing Physician Notes I personally saw and examined the patient. I verified all saleh points and agree with Petra Jean PA-C with the following exceptions and/or additions: 67 year old female who POD#0 left reverse total shoulder. EBL 75ml. Gaining most of her feeling back in her hand at this time. No shortness of breath and off oxygen. She reports recent mechanical fall last week were she went down on her ankle. XR at [facility] showed a fracture per patient report and Dr Santos is aware and she was seen on Monday before her operation for this with management using current boot. No acute concerns or question from the patient. O/E HS RRR, no murmurs, Chest CTAB, Abdo SNT, sensation intact in right toes with swelling and ecchymosis present, moving all left fingers with mild sensory deficit in thumb and 2nd finger A/P VTE/Pain/bowel management per primary orthopedic team HTN - agree with holding HCTZ possible to POD #2 pending serial BP measurements. Foot drop - awaiting outpatient repeat EMG/NCS testing under [facility] neurology. Discussed likely need to delay this with her recent fracture. Right foot fracture - Dr Santos reportedly aware and arranged current boot. No XR available at this time to review as she had them done in [facility]. Management per orthopedics. Weight bearing status per orthopedics. History of Present Illness Reason for Consultation: Medical Management Attending Physician: Amor Santos MD History of Present Illness Patient seen sitting up in bed. Reports feeling well after surgery. No pain currently, not requiring oxygen, denies nausea. Reports having an appetite. Reports uses Xanax infrequently, but did take it last night prior to surgery. Also reports having foot drop. States she had this previously, but resolved after back surgery ~20 years ago. Restarted a few months ago and has been working with neurology and PT for this. Allergies Allergy/AdvReac Type Severity Reaction Status Date / Time sulfamethoxazole Allergy Unknown Unknown Verified 02/02/23 10:33 [From Bactrim] trimethoprim [From Bactrim] Allergy Unknown Unknown Verified 02/02/23 10:33 paroxetine [From Paxil] AdvReac Intermediate nightmares Verified 02/02/23 10:33 Home Medications Medication Instructions Recorded Confirmed Type alprazolam 0.25 mg tablet 0.25 mg PO DAILY PRN Anxiety 02/02/23 03/20/23 History biotin 5,000 mcg disintegrating 5,000 mcg PO QAM 02/02/23 03/20/23 History tablet carvedilol 6.25 mg tablet 6.25 mg PO BID 02/02/23 03/20/23 History cholecalciferol (vitamin D3) 125 125 mcg PO QAM 02/02/23 03/20/23 History mcg (5,000 unit) tablet (Vitamin D3) olmesartan 20 1 tab PO QAM 02/02/23 03/20/23 History mg-hydrochlorothiazide 12.5 mg tablet venlafaxine 150 mg 150 mg PO QAM 02/02/23 03/20/23 History capsule,extended release 24 hr acetaminophen 500 mg tablet 1,000 mg (2 x 500 mg) PO Q8 #60 03/20/23 Rx (Tylenol Extra Strength) tabs oxycodone 5 mg tablet 5 - 10 mg (1 - 2 x 5 mg) PO 03/20/23 Rx .Q4h-6h PRN pain #30 tabs Patient History Medical History (Updated 03/21/23 @ 08:09 by Dave Black MD) Foot drop Right side- since November 2022 - follows with S neuro - 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" Hearing deficit Bilateral aids bilaterally Anxiety Hypertension Surgical History History of dilatation and curettage History of bilateral tubal ligation History of lumbar surgery L4-5 History of colonoscopy History of total hysterectomy with bilateral salpingo-oophorectomy (BSO) History of tooth extraction History of ear surgery Family History Other No family history of adverse response to anesthesia Social History Smoking Status: Never smoker Second Hand Exposure: No; Do You Dip or Chew Tobacco: No; Tobacco Cessation Education Requested by Patient: No Hx Alcohol Use: Yes (drinks 2 glass of vodka a day) Alcohol type: hard liquor Hx Substance Use: No Preferred Language: Bulgarian Communication Ability: Effective Escort Car Driver Required: No Beliefs That Will Affect Care: None Current Living Situation: Spouse Other Information That Helps Us Care for You: No Feels Safe at Home: Yes Safety Concerns: Feels Safe At This Time Assistive Devices: None Review of Systems Review of Systems: All systems reviewed & are unremarkable except as noted in Subjective Physical Exam Physical Exam: General: WN/WD, NAD, VS as above Resp: normal respiratory effort, lungs clear to auscultation CV: RRR, no murmur, Abd: normal bowel sounds, non tender, no hepatosplenomegaly Extremities: Left shoulder sling inplace . Dressing c/d/i. Drain in place. Good ROM of all fingers. Sensation intact. Neuro: A&O x3, Results & Data Results & Data Vital Signs (Past 12 Hours) Vital Signs Temp Pulse Pulse Resp BP Pulse Ox O2 Del Method 03/20/23 14:41 36.5 C 78 16 146/85 H 93 Room Air 03/20/23 13:42 36.4 C L 78 16 124/78 97 Room Air 03/20/23 13:24 77 15 142/72 H 96 Nasal Cannula 03/20/23 13:10 36.4 C L 81 15 127/76 94 Room Air 03/20/23 13:00 81 15 127/81 97 Oxymask 03/20/23 12:50 88 14 143/79 H 97 Oxymask 03/20/23 12:42 36.1 C L 88 12 156/80 H 91 Oxymask 03/20/23 07:58 36.7 C 69 18 162/81 H 98 Room Air O2 Flow Rate 03/20/23 14:41 03/20/23 13:42 03/20/23 13:24 2 03/20/23 13:10 03/20/23 13:00 3 03/20/23 12:50 9 03/20/23 12:42 9 03/20/23 07:58 Laboratory Results CBC and chemistry reviewed PG Care Time/CCT Total # of Minutes Spent Total Time Spent with Patient: Total time spent is greater than 50% in coordination of care (as documented) at patient's floor/unit and/or counseling patient: Coding Level of Care Code 18073 IN/OBS CONSULT LVL 3,45M Diagnoses Primary osteoarthritis, left shoulder M19.012 Hypertension I10 Anxiety F41.9 Foot drop M21.379 Fall W19.XXXA Right foot injury S99.921A
--- NOTE | 2023-03-20 15:30 | Anesthesiology Progress Note ---
Date of Service March 20, 2023 Anesthesia Post Procedure Vital Signs Vital Signs: Temp Pulse Pulse Resp BP Pulse Ox O2 Del Method 03/20/23 14:41 36.5 C 78 16 146/85 H 93 Room Air 03/20/23 13:42 36.4 C L 78 16 124/78 97 Room Air 03/20/23 13:24 77 15 142/72 H 96 Nasal Cannula 03/20/23 13:10 36.4 C L 81 15 127/76 94 Room Air 03/20/23 13:00 81 15 127/81 97 Oxymask 03/20/23 12:50 88 14 143/79 H 97 Oxymask 03/20/23 12:42 36.1 C L 88 12 156/80 H 91 Oxymask 03/20/23 07:58 36.7 C 69 18 162/81 H 98 Room Air O2 Flow Rate 03/20/23 14:41 03/20/23 13:42 03/20/23 13:24 2 03/20/23 13:10 03/20/23 13:00 3 03/20/23 12:50 9 03/20/23 12:42 9 03/20/23 07:58 Transfer of Care Handoff Completed per policy Notes Mental Status: alert / awake / arousable and participated in evaluation Patient Amnestic to Procedure: Yes Nausea / Vomiting: adequately controlled Pain: adequately controlled Airway Patency, RR, SpO2: stable & adequate BP & HR: stable & adequate Hydration State: stable & adequate Anesthetic Complications: no major complications apparent and Pt Satisfied with anesthetic care
[2023-03-20] MEDS: ACETAMINOPHEN 500 MG TAB PO SCH ×2 (15:35→20:57)
[2023-03-20] MEDS: ceFAZolin 2000MG 2,000 MG/15 ML SYR IV SCH (18:28)
[2023-03-20] MEDS: DOCUSATE SODIUM 100 MG CAP PO SCH (20:55)
[2023-03-20] MEDS: carvediloL 6.25 MG TAB PO SCH (20:56)
[2023-03-20] MEDS ORDERED: SENNA 8.6 MG TAB PO SCH (21:00)
[2023-03-21] MEDS: ceFAZolin 2000MG 2,000 MG/15 ML SYR IV SCH (01:50)
[2023-03-21] MEDS: ACETAMINOPHEN 500 MG TAB PO SCH (05:43)
--- NOTE | 2023-03-21 07:10 | Orthopedic Progress Note ---
Date of Service March 21, 2023 Assessment & Plan (1) Primary osteoarthritis, left shoulder: Plan: Postop day 1 status post left reverse total shoulder arthroplasty PT/OT protocols. Nonweightbearing left upper extremity. DVT prophylaxis-SCDs, KRISTIE blackburn Pain management as written Labs pending DC planning-patient is planning for outpatient PT when okayed by Dr. Early. Initially no formal physical therapy be done secondary to her Dr. Early's reverse total shoulder protocols. Plan for discharge to home today. We will review laboratory values prior to discharge Admission and Anticipated Discharge Date Admission Date: March 20, 2023 Subjective Postop day 1 Patient lying in bed sleeping. Easily awoken. No complaints this morning. States that she has good pain control currently. States she still has some residual numbness in her left hand and fingers but otherwise she feels well. She is hoping to go home today. Physical Exam Physical Exam: Left shoulder dressings are clean, dry, and intact. Sling is in place. She has good range of motion of her left wrist. She has good range of motion of her fingers at this time. Cap refills less than 2 seconds. She does have some residual decree sensation in the fingers from her nerve block. Hemovac present Results & Data Vital Signs (Past 12 Hours) Vital Signs Temp Pulse Resp BP Pulse Ox O2 Del Method 03/21/23 03:30 36.7 C 71 18 118/79 98 Room Air 03/20/23 22:39 36.9 C 89 18 131/76 96 Room Air 03/20/23 20:07 36.6 C 89 18 153/80 H 96 Room Air
[2023-03-21 07:18] LABS: Basophils # (auto) 0.01 K/uL (0.00-0.20); Basophils % (auto) 0.1 %; Eosinophils # (auto) 0.01 K/uL (0.00-0.50); Eosinophils % (auto) 0.1 %; Hematocrit (blood only) 34.2 % (37.0-47.0); Hemoglobin 11.6 g/dl (12.0-16.0); Immature Granulocytes # (auto) 0.04 K/uL (0.01-0.20); Immature Granulocytes % (auto) 0.5 %; Lymphocytes # (auto) 1.04 K/uL (1.20-3.40); Lymphocytes % (auto) 12.2 %; Mean Corpuscular Hemoglobin 33.6 pg (25.0-34.0); Mean Corpuscular Hgb Conc 33.9 g/dL (32.0-36.0); Mean Corpuscular Volume 99.1 fL (80.0-100.0); Mean Platelet Volume 9.8 fL (9.4-12.4); Monocytes # (auto) 0.78 K/uL (0.11-0.59); Monocytes % (auto) 9.2 %; Neutrophils # (auto) 6.61 K/uL (1.40-6.50); Neutrophils % (auto) 77.9 %; Platelet Count 214 K/uL (130-400); RDW Coefficient of Variation 11.9 % (11.5-14.5); RDW Standard Deviation 43.2 fL (36.4-46.3); Red Blood Count 3.45 M/uL (4.20-5.40); White Blood Count 8.49 K/ul (4.8-10.8)
[2023-03-21 07:50] LABS: Calcium 8.8 mg/dl (8.6-10.3); Creatinine Clr Calc Pharmacy 112.9 ml/min; Est GFR (African American) 114.5 ml/min; Est GFR (Non-African American) 98.8 ml/min; Potassium 3.7 mmol/L (3.5-5.1)
[2023-03-21] MEDS: DOCUSATE SODIUM 100 MG CAP PO SCH (08:11)
[2023-03-21] MEDS: carvediloL 6.25 MG TAB PO SCH (08:12)
[2023-03-21] MEDS ORDERED: LOSARTAN POTASSIUM 50 MG TAB PO SCH (09:00)
[2023-03-21] MEDS ORDERED: MULTIVITAMIN TAB PO SCH (09:00)
[2023-03-21] MEDS ORDERED: CHOLECALCIFEROL 5,000 UNITS 125 MCG TAB PO SCH (09:00)
[2023-03-21] MEDS ORDERED: VENLAFAXINE HCL XR 150 MG CAPXR PO SCH (09:00)
[2023-03-21] MEDS ORDERED: hydroCHLOROthiazide 25 MG TAB PO SCH (09:00)
--- NOTE | 2023-03-21 09:50 | Hospitalist Progress Note ---
Date of Service March 21, 2023 Assessment & Plan (1) Primary osteoarthritis, left shoulder: Plan: - S/p Left Reverse Total Shoulder Arthroplasty with Dr. Santos -Pain control and DVT proh per Primary Team (2) Hypertension: Plan: -Continue home Olmesartan and Coreg -Restart HCTZ 03/22 at home (3) Anxiety: Plan: -Continue home Venlafaxine and prn Xanax (4) Foot drop: Plan: -chronic Continue outpatient neurology follow up and physical therapy (5) Fall: Plan: Recent fall appears mechanical in nature, no further workup required (6) Right foot injury: Plan: Management per orthopedics - no XRs available to review but reportedly has a fracture in her foot Management per orthopedics with boot Plan Dispo: okay for discharge, hospitalist will sign off Thank you for allowing us to participate in the care of this patient, please reach out with any questions or concerns Admission and Anticipated Discharge Date Admission Date: March 20, 2023 Supervising Physician Co-Signing Physician Notes PA Supervision Note: I did not personally see or examine the patient today as she was seen by the Admitting hospitalist within 24 hrs, but I verified all saleh points of KYLE Jean's assessment and plan with the following exceptions/additions: None Subjective Patient sitting in the chair, states pain is well controlled. Left shoulder sling and Right boot in place. Tolerating PO intake well. Denies CP or SOB Review of Systems Review of Systems: All systems reviewed & are unremarkable except as noted in Subjective Physical Exam Physical Exam: General: WN/WD, NAD, VS as above Resp: normal respiratory effort, lungs clear to auscultation CV: RRR, no murmur, Extremities: Left shoulder sling inplace . Dressing c/d/i. Drain in place. Good ROM of all fingers. Sensation intact. Neuro: A&O x3, Results & Data Results & Data Vital Signs (Past 12 Hours) Vital Signs Temp Pulse Resp BP Pulse Ox O2 Del Method 03/21/23 08:09 75 132/74 03/21/23 07:49 36.6 C 67 18 123/74 98 Room Air 03/21/23 03:30 36.7 C 71 18 118/79 98 Room Air 03/20/23 22:39 36.9 C 89 18 131/76 96 Room Air PG Care Time/CCT Total # of Minutes Spent Total Time Spent with Patient: Total time spent is greater than 50% in coordination of care (as documented) at patient's floor/unit and/or counseling patient: Coding Level of Care Code 76494 SUB INP/OBS CARE 04/27MIN Diagnoses Primary osteoarthritis, left shoulder M19.012 Hypertension I10 Anxiety F41.9 Foot drop M21.379 Fall W19.XXXA Right foot injury S99.921A
--- NOTE | 2023-03-22 15:28 | Discharge Summary ---
Date of Service March 22, 2023 Admission HPI Per Admitting Provider 67-year-old female with past medical history significant for anxiety, hypertension who presents with ongoing left shoulder pain. Pain is interfering with her daily activities. She has failed conservative measures including steroid injections. She would like to proceed with surgical management. Patient denies headaches, sweats, fevers, chills, double vision, blurred vision, cough, sore throat, dysphagia, chest pain, sob, wheezing, n/v/d/c, numbness, tingling, fatigue, urinary symptoms, mood disorders. ROS positive for left shoulder pain and stiffness. Admission Exam Per Admitting Provider Constitutional: well developed and well nourished; no acute distress Eyes: PERRL, conjunctivae normal, anicteric sclerae ENMT: external ear and nose normal, oropharynx normal Neck: trachea midline, no thyromegaly Respiratory: normal respiratory effort, lungs clear to auscultation Cardiovascular: RRR, no murmur, no edema Musculoskeletal: Left shoulder: Crepitus with range of motion. Tenderness anterior glenoid. Positive impingement signs. Painful range of motion. Forward flexion and abduction to 170 degrees, 80 degrees of external rotation. Normal strength. Skin: no rashes, warm and dry Neurologic: patellar DTR's 2+ bilat, sensation intact Psychiatric: A+Ox3, euthymic affect Principal Diagnosis Left shoulder osteoarthritis Discharge Exam Left shoulder dressings are clean, dry, and intact. Sling is in place. She has good range of motion of her left wrist. She has good range of motion of her fingers at this time. Cap refills less than 2 seconds. She does have some residual decree sensation in the fingers from her nerve block. Hemovac present Discharge Data Allergies Allergy/AdvReac Type Severity Reaction Status Date / Time sulfamethoxazole Allergy Unknown Unknown Verified 02/02/23 10:33 [From Bactrim] trimethoprim [From Bactrim] Allergy Unknown Unknown Verified 02/02/23 10:33 paroxetine [From Paxil] AdvReac Intermediate nightmares Verified 02/02/23 10:33 Consultations 03/17/23 08:09 Consult Hospitalist Routine Procedures Performed Operation Date: 03/20/23 09:10 Actual Procedures p Left Reverse Total Shoulder Arthroplasty, Biceps Tenodesis(Left) - Amor Santos MD Ordered Studies 03/20/23 05:00 US - OR guided needle placemen Routine Hospital Course (1) Primary osteoarthritis, left shoulder: Postop day 1 status post left reverse total shoulder arthroplasty PT/OT protocols. Nonweightbearing left upper extremity. DVT prophylaxis-SCDs, KRISTIE blackburn Pain management as written Labs pending DC planning-patient is planning for outpatient PT when okayed by Dr. Early. Initially no formal physical therapy be done secondary to her Dr. Early's reverse total shoulder protocols. Plan for discharge to home today. We will review laboratory values prior to discharge Lab Results 03/20/23 03/21/23 Range/Units 07:57 06:40 WBC 5.15 8.49 (4.8-10.8) K/ul RBC 3.94 L 3.45 L (4.20-5.40) M/uL Hgb 13.5 11.6 L (12.0-16.0) g/dl Hct 39.0 34.2 L (37.0-47.0) % MCV 99.0 99.1 (80.0-100.0) fL MCH 34.3 H 33.6 (25.0-34.0) pg MCHC 34.6 33.9 (32.0-36.0) g/dL RDW Std Deviation 43.2 43.2 (36.4-46.3) fL RDW Coeff of Willis 11.9 11.9 (11.5-14.5) % Plt Count 212 214 (130-400) K/uL MPV 9.6 9.8 (9.4-12.4) fL Immature Gran % (Auto) 0.2 0.5 % Neut % (Auto) 51.8 77.9 % Lymph % (Auto) 34.8 12.2 % [place] % (Auto) 10.3 9.2 % Eos % (Auto) 2.5 0.1 % Baso % (Auto) 0.4 0.1 % Neut # (Auto) 2.67 6.61 H (1.40-6.50) K/uL Lymph # (Auto) 1.79 1.04 L (1.20-3.40) K/uL [place] # (Auto) 0.53 0.78 H (0.11-0.59) K/uL Eos # (Auto) 0.13 0.01 (0.00-0.50) K/uL Baso # (Auto) 0.02 0.01 (0.00-0.20) K/uL Immature Gran # (Auto) 0.01 0.04 (0.01-0.20) K/uL Sodium 137 137 (136-145) mmol/L Potassium 3.7 3.7 (3.5-5.1) mmol/L Chloride 102 106 (98-107) mmol/L Carbon Dioxide 28 26 (21-32) mmol/L Anion Gap 7 5 (3-11) BUN 14 12 (6-23) mg/dl Creatinine 0.57 L 0.50 L (0.6-1.2) mg/dl Est Cr Clr Drug Dosing 99.0 112.9 ml/min Est GFR ( Amer) 109.6 114.5 ml/min Est GFR (Non-Af Amer) 94.6 98.8 ml/min BUN/Creatinine Ratio 24.6 H 24.0 H (10-20) Glucose 102 H 120 H (70-99(Fasting)) mg/dl Calcium 9.5 8.8 (8.6-10.3) mg/dl Total Time Total Time Spent Total Time Spent (In Minutes): 20 Discharge Plan Discharge Items Patient Disposition: Home - Self-Care Reason For Visit: Left Shoulder Osteoarthritis, Left Shoulder Rotato Discharge Diagnosis: Left shoulder osteoarthritis Activity: Per Instructions section Non-emergency contact: Surgeon Call non-emergency contact if: you have any medication questions, your pain is not controlled, your pain is concerning for you, you have a fever, your wound has increased redness and your wound has increased drainage Follow-up/Referrals: Aguilar Abbasi PA-C [Primary Care Provider] - Diet: Regular Addtl Attending Provider Instructions: ACTIVITY RECOMMENDATIONS: SELF CARE INSTRUCTIONS AFTER TOTAL SHOULDER ARTHROPLASTY REVERSE A. You may do daily exercises as taught in physical therapy while in hospital. No lifting with the operative arm. B. You are to wear your sling/immobilizer at all times EXCEPT when performing your daily exercises and for hygiene purposes. C. You may perform dry, daily dressing changes. Please keep your incision covered. You may shower 48 hours after surgery. Do not apply soap or any ointment/lotions directly over incision. Do not soak incision in bath tub/swimming pool. D. You may use ice as needed to operative shoulder. SPECIAL CARE INSTRUCTIONS: VERY IMPORTANT TO READ AND REVIEW A. There are a few signs you need to watch for after you are home. Call [facility] at [phone] if you experience any of the followin. Increased severe shoulder pain. Some pain is expected especially when you exercise. 2. Increased swelling in you shoulder or arm; pain or swelling in either upper extremity. 3. Any fluid drainage from the incision. 4. Shortness of breath or chest pain. B. Please call [facility] at [phone] if you have any questions or concerns about your operation or recovery. C. Call your physician if: 1. Temperature is greater than 101 degrees (F). 2. Pain is not relieved by prescribed pain medications. 3. Increase drainage or redness from incision. 4. Unanswered questions or concerns. FOLLOW UP VISIT: Please call [facility] at [phone] to schedule a follow up appointment with Dr. Santos or his PA in 12-14 days from your surgery date. Stand-Alone Forms: [facility], Pain - Opioid Pain Management, Smoking Cessation Medications and DC Order Prescriptions: New acetaminophen [Tylenol Extra Strength] 500 mg Tablet 1,000 mg PO Q8 Qty: 60 0RF oxycodone 5 mg Tablet 5 - 10 mg PO .Q4h-6h MDD 6 PRN (Reason: pain) Qty: 30 0RF Rx Instructions: Ongoing therapy, Dr. Santos supervising Continued carvedilol 6.25 mg Tablet 6.25 mg PO BID Rx Instructions: must administer with a meal/food venlafaxine 150 mg Capsule,Extended Release 24hr 150 mg PO QAM olmesartan-hydrochlorothiazide 20-12.5 mg Tablet 1 tab PO QAM cholecalciferol (vitamin D3) [Vitamin D3] 125 mcg (5,000 unit) Tablet 125 mcg PO QAM biotin 5,000 mcg Tablet,Disintegrating 5,000 mcg PO QAM alprazolam 0.25 mg Tablet 0.25 mg PO DAILY PRN (Reason: Anxiety) Discharge Orders: Discharge Order (Routine); Ordered 03/21/23 Ordered By: Vinnie Flannery/Other Patient Handouts: DVT Post Op Prevention Admission Data Admit Date/Time: 03/20/23 12:43 Attending Provider: Amor Santos Admit Provider: Amor Santos Primary Care Provider: Aguilar Abbasi Other Providers: Jenny Moreno Other Interventions: Discharge Summary Assessment (RN) Last Done: 03/21/23 11:30
== END 2023-03-21 13:09 | disposition home or self-care (01) ==
LOC: ASU 07:13 → 3E 07:13